=== PATIENT | male | born 1995 | race Caucasian/White ===

== ENCOUNTER 2016-10-27 12:00 | Emergency (ER) | payer OTHER ==
[~2016-10-27] VITALS: Ht 170.2 cm; Wt 66.0 kg
[~2016-10-27 12:00] MED LIST: PERM5CRE TOP; [UNRECOGNIZED DRUG - REMARK]
[2016-10-27 12:04] VITALS: BP 128/74; PULSE 90; RESP 16; TEMP 98.3; O2SAT 100
[2016-10-27] MEDS ORDERED: SODIUM CHLORIDE 0.9% FLUSH 5 ML FLUSH IVF PRN (12:45)
[2016-10-27] MEDS ORDERED: ONDANSETRON HCL 4 MG/2 ML VIAL IVP ONE (12:45)
[2016-10-27] MEDS ORDERED: MORPHINE SULFATE 4 MG/ML INJ IV PUSH ONE (12:45)
--- NOTE | 2016-10-27 12:50 | PD ---
HPI . Abdominal pain Chief Complaint: Abdominal Pain Time Seen by Provider: 12:35 Travel History International Travel<30 days: No Contact w/Intl Traveler<30days: No Traveled to known affect area: No History of Present Illness HPI Patient presents with a 3 to four-day history of lower abdominal pain. He states that he was seen outside facility at the onset of his symptoms and was told that he probably had appendicitis. He states that his surgeon was called in. He states that he had been told by his work that he would not be paid for time off so he left AMA. He reports continued abdominal pain since that time although he does state that it is better now. He any associated fever. He denies any nausea, vomiting or diarrhea. He denies any anorexia. He denies any urinary tract symptoms. He states that his appetite has waxed and waned his entire life and that sometimes he'll gain a lot of weight and then he'll lose his appetite and lose a lot of weight. PFSH Past Medical History Medical History: Denies Significant Hx Diminished Hearing: No Immunizations Current: Yes Influenza Vaccination: No Past Surgical History Surgical History: No Previous Surgery Social History Alcohol Use: Yes (occ) Tobacco Use: Yes (< 1 ppd) Substance Use: Yes (MARIJUANA DAILY ) Allergies-Medications (Allergen,Severity, Reaction): Coded Allergies: Zosyn (Verified Allergy, Intermediate, HIVES, 10/27/16) Reported Meds & Prescriptions Reported Meds & Active Scripts Active Bentyl (Dicyclomine HCl) 20 Mg Tab 20 Mg PO QID PRN Review of Systems Except as stated in HPI: all other systems reviewed are Neg General / Constitutional: No: Fever, Chills Gastrointestinal: Positive: Abdominal Pain, No: Nausea, Vomiting, Diarrhea, Loss of Appetite Genitourinary: No: Urgency, Frequency, Dysuria Physical Exam Narrative GENERAL: Healthy-appearing young man in no acute distress. SKIN: Warm and dry. HEAD: Atraumatic. Normocephalic. EYES: Pupils equal and round. ENT: No nasal bleeding or discharge. Mucous membranes pink and moist. NECK: Trachea midline. CARDIOVASCULAR: Regular rate and rhythm. RESPIRATORY: No accessory muscle use. GASTROINTESTINAL: Abdomen soft, non-tender, nondistended. Normal bowel sounds. MUSCULOSKELETAL: No obvious deformities. No edema. NEUROLOGICAL: Awake and alert. No obvious cranial nerve deficits. Motor grossly within normal limits. Normal speech. PSYCHIATRIC: Appropriate mood and affect; insight and judgment normal. Data Data Last Documented VS Vital Signs Date Time Temp Pulse Resp B/P Pulse Ox O2 Delivery O2 Flow Rate FiO2 10/27/16 12:04 98.3 90 16 128/74 100 Orders Complete Blood Count With Diff (10/27/16 12:35) Comprehensive Metabolic Panel (10/27/16 12:35) Lactic Acid (10/27/16 12:35) Urinalysis - C+S If Indicated (10/27/16 12:35) Ct Abd/Pel W Iv Contrast(Rout) (10/27/16 12:35) Iv Access Insert/Monitor (10/27/16 12:35) Morphine Inj (Morphine Inj) (10/27/16 12:45) Ondansetron Inj (Zofran Inj) (10/27/16 12:45) Sodium Chloride 0.9% Flush (Ns Flush) (10/27/16 12:45) Iohexol 350 Inj (Omnipaque 350 Inj) (10/27/16 14:11) Labs Laboratory Tests Test 10/27/16 10/27/16 10/27/16 12:40 13:00 13:05 White Blood Count 6.8 TH/MM3 Red Blood Count 5.65 MIL/MM3 Hemoglobin 16.1 GM/DL Hematocrit 47.8 % Mean Corpuscular Volume 84.7 FL Mean Corpuscular Hemoglobin 28.5 PG Mean Corpuscular Hemoglobin 33.6 % Concent Red Cell Distribution Width 13.0 % Platelet Count 261 TH/MM3 Mean Platelet Volume 8.4 FL Neutrophils (%) (Auto) 55.3 % Lymphocytes (%) (Auto) 36.2 % Monocytes (%) (Auto) 5.3 % Eosinophils (%) (Auto) 1.5 % Basophils (%) (Auto) 1.7 % Neutrophils # (Auto) 3.8 TH/MM3 Lymphocytes # (Auto) 2.4 TH/MM3 Monocytes # (Auto) 0.4 TH/MM3 Eosinophils # (Auto) 0.1 TH/MM3 Basophils # (Auto) 0.1 TH/MM3 CBC Comment DIFF FINAL Differential Comment Lactic Acid Level 0.7 mmol/L Urine Collection Type CLEAN CATCH Urine Color YELLOW Urine Turbidity CLEAR Urine pH 8.5 Urine Specific [place] 1.016 Urine Protein NEG mg/dL Urine Glucose (UA) NEG mg/dL Urine Ketones NEG mg/dL Urine Occult Blood NEG Urine Nitrite NEG Urine Bilirubin NEG Urine Leukocyte Esterase NEG Urine RBC 0-3 /hpf Urine Squamous Epithelial 0-5 /hpf Cells Urine Sperm MANY Microscopic Urinalysis Comment CULT NOT INDICATED Urine Collection Time 13:00 Sodium Level 140 MEQ/L Potassium Level 4.2 MEQ/L Chloride Level 104 MEQ/L Carbon Dioxide Level 31.7 MEQ/L Anion Gap 4 MEQ/L Blood Urea Nitrogen 12 MG/DL Creatinine 0.92 MG/DL Estimat Glomerular Filtration 105 ML/MIN Rate Random Glucose 84 MG/DL Calcium Level 9.0 MG/DL Total Bilirubin 0.7 MG/DL Aspartate Amino Transf 24 U/L (AST/SGOT) Alanine Aminotransferase 25 U/L (ALT/SGPT) Alkaline Phosphatase 98 U/L Total Protein 7.5 GM/DL Albumin 4.1 GM/DL [facility] Medical Decision Making Medical Screen Exam Complete: Yes Emergency Medical Condition: Yes Differential Diagnosis Differential diagnosis of abdominal pain includes but is not limited to gastritis, pancreatitis, hepatitis, gastroenteritis, gallbladder disease, constipation, urinary retention, UTI, peptic ulcer disease, diverticulitis or appendicitis Narrative Course Patient presents for evaluation of lower abdominal pain. He reports he was told a few days ago that he had appendicitis. Surgery was planned but he signed out AMA. CBC & BMP Diagram 10/27/16 12:40 10/27/16 13:05 UA is negative for infection. CT was negative for active disease. Diagnosis Primary Impression: Abdominal pain Qualified Code: R10.30 - Lower abdominal pain Scripts Dicyclomine (Bentyl)20 Mg Tab20 Mg PO QID PRN (abdominal cramping) #12 TAB Ref 0 Prov:Lexi Winchester MD 10/27/16 Disposition: 01 DISCHARGE HOME Condition: Stable Lexi Winchester MD Oct 27, 2016 12:50
[2016-10-27 13:00] LABS: AUTOMATED NEUTROPHIL # 3.8 TH/MM3 (1.8-7.7); BASOPHIL # 0.1 TH/MM3 (0-0.2); BASOPHIL % 1.7 % (0.0-2.0); EOSINOPHIL # 0.1 TH/MM3 (0-0.4); EOSINOPHIL % 1.5 % (0.0-4.0); HEMATOCRIT 47.8 % (39.0-51.0); HEMO FLAGS DIFF FINAL; LYMPH % 36.2 % (9.0-44.0); LYMPHOCYTE # 2.4 TH/MM3 (1.0-4.8); MEAN CELL VOLUME 84.7 FL (80.0-100.0); MEAN CORPUSCULAR HEMOGLOBIN 28.5 PG (27.0-34.0); MEAN CORPUSCULAR HGB CONC 33.6 % (32.0-36.0); MONO % 5.3 % (0.0-8.0); NEUT % 55.3 % (16.0-70.0); PLATELET COUNT 261 TH/MM3 (150-450); RED BLOOD COUNT 5.65 MIL/MM3 (4.50-5.90); WHITE BLOOD COUNT 6.8 TH/MM3 (4.0-11.0)
[2016-10-27 13:04] LABS: BLOOD, URINE NEG (NEG); GLUCOSE,URINE NEG (NEG); KETONE, URINE NEG (NEG); NITRITE,URINE NEG (NEG); PH, URINE 8.5 (5.0-8.5)
[2016-10-27 13:08] LABS: METHOD OF COLLECTION CLEAN CATCH; URINE COLOR YELLOW (YELLW/STRAW)
[2016-10-27 13:09] LABS: RBC, URINE 0-3 /hpf (0-3); SQUAMOUS EPITHELIAL CELL URINE 0-5 /hpf (0-5)
[2016-10-27 13:10] LABS: COMMENT (UR) CULT NOT INDICATED; CULTURE IF INDICATED CULT NOT INDICATED
[2016-10-27 13:31] LABS: CHLORIDE 104 MEQ/L (98-107); POTASSIUM 4.2 MEQ/L (3.5-5.1); SODIUM (NA) 140 MEQ/L (136-145)
[2016-10-27 13:36] LABS: ANION GAP 4 MEQ/L (5-15); BICARBONATE 31.7 MEQ/L (21.0-32.0)
[2016-10-27 13:37] LABS: BLOOD UREA NITROGEN 12 MG/DL (7-18)
[2016-10-27 13:39] LABS: ALT (GPT) 25 U/L (9-52)
[2016-10-27 13:40] LABS: AST (GOT) 24 U/L (15-39); GLOMERULAR FILTRATION RATE 105 ML/MIN (>89)
[2016-10-27 13:41] LABS: TOTAL BILIRUBIN ADULT 0.7 MG/DL (0.2-1.0)
[2016-10-27 13:42] LABS: ALKALINE PHOSPHATASE 98 U/L (45-117)
[2016-10-27] MEDS ORDERED: BENT20TA PO (13:47)
[2016-10-27] MEDS ORDERED: IOHEXOL 350 MG/ML 10 ML VIAL (for RAD DIAG) IV ONE (14:11)
--- NOTE | 2016-10-27 14:30 | RADHPO ---
EXAM DATE/TIME: 10/27/2016 14:03 [place] COMPARISON: No previous studies available for comparison. INDICATIONS : Right mid to lower abdominal pain. IV CONTRAST: 90 cc Omnipaque 350 (iohexol) IV ORAL CONTRAST: No oral contrast ingested. RADIATION DOSE: 4.74 CTDIvol (mGy) MEDICAL HISTORY : None SURGICAL HISTORY : None. ENCOUNTER: Initial ACUITY: 3 days PAIN SCALE: 3/10 LOCATION: Right lower quadrant TECHNIQUE: Volumetric scanning of the abdomen and pelvis was performed. Using automated exposure control and ad justment of the mA and/or kV according to patient size, radiation dose was kept as low as reasonably achievable to obtain optimal diagnostic quality images. FINDINGS: LOWER LUNGS: The visualized lower lungs are clear. LIVER: Homogeneous density without lesion. There is no dilation of the biliary tree. No calcified gallston es. SPLEEN: Normal size without lesion. PANCREAS: Within normal limits. KIDNEYS: Normal in size and shape. There is no mass, stone or hydronephrosis. ADRENAL GLANDS: Within normal limits. VASCULAR: There is no aortic aneurysm. BOWEL/MESENTERY: The stomach, small bowel, and colon demonstrate no acute abnormality. There is no free intraperitone al air or fluid. ABDOMINAL WALL: Within normal limits. RETROPERITONEUM: There is no lymphadenopathy. BLADDER: No wall thickening or mass. REPRODUCTIVE: Within normal limits. INGUINAL: There is no lymphadenopathy or hernia. MUSCULOSKELETAL: Within normal limits for patient age. CONCLUSION: No acute disease. Nitin Chacon MD on October 27, 2016 at 14:24 Board Certified Radiologist. This report was verified electronically.
== END 2016-10-27 14:58 | disposition home or self-care (01) ==
LOC: PHED 12:00
DX: R10.30 Lower abdominal pain, unspecified (principal); F17.210 Nicotine dependence, cigarettes, uncomplicated; F12.20 Cannabis dependence, uncomplicated
CPT/HCPCS: 74177; 80053; 81001; 83605; 85025; 96374; 96375; 99284; J2270; J2405; Q9967

== ENCOUNTER 2017-08-01 13:22 | Emergency (ER) | payer OTHER ==
[~2017-08-01] VITALS: Ht 175.3 cm; Wt 67.0 kg
[~2017-08-01 13:22] MED LIST changes: +BENT20TA PO; -PERM5CRE TOP; -[UNRECOGNIZED DRUG - REMARK]
[2017-08-01 13:38] VITALS: BP 124/66; PULSE 94; RESP 16; TEMP 98.6; O2SAT 97
[2017-08-01 14:27] LABS: AUTOMATED NEUTROPHIL # 6.6 TH/MM3 (1.8-7.7); BASOPHIL # 0.1 TH/MM3 (0-0.2); EOSINOPHIL # 0.1 TH/MM3 (0-0.4); EOSINOPHIL % 1.2 % (0.0-4.0); HEMATOCRIT 40.9 % (39.0-51.0); HEMO FLAGS DIFF FINAL; LYMPH % 22.7 % (9.0-44.0); LYMPHOCYTE # 2.2 TH/MM3 (1.0-4.8); MEAN CELL VOLUME 86.2 FL (80.0-100.0); MEAN CORPUSCULAR HEMOGLOBIN 29.1 PG (27.0-34.0); MEAN CORPUSCULAR HGB CONC 33.8 % (32.0-36.0); MONO % 8.6 % (0.0-8.0); NEUT % 66.5 % (16.0-70.0); PLATELET COUNT 328 TH/MM3 (150-450); RED BLOOD COUNT 4.75 MIL/MM3 (4.50-5.90); RED CELL DISTRIBUTION WIDTH 14.8 % (11.6-17.2); WHITE BLOOD COUNT 9.9 TH/MM3 (4.0-11.0)
--- NOTE | 2017-08-01 14:41 | PD ---
HPI Chief Complaint: Suicide Ideation/Attempt Time Seen by Provider: 14:38 Travel History International Travel<30 days: No Contact w/Intl Traveler<30days: No Traveled to known affect area: No History of Present Illness HPI Patient is a 22-year-old male presenting to emergency Department under [facility] for psychiatric evaluation. Patient states that he is "losing his mind". He states that he felt suicidal for almost a year. He reports attempting to overdose twice on heroin during this time. He reports consistent use of methamphetamines doesn't know when he took it last because he "blacks out". He states that he was released from long term on May 11. He also reports relationship issues and states that he chooses to be homeless. Other than foot pain from walking for the last several days he has no complaints. Patient denies any homicidal ideations or hallucinations. PFSH Past Medical History Medical History: Denies Significant Hx Psychiatric: Yes Immunizations Current: Yes Tetanus Vaccination: Unknown Past Surgical History Surgical History: No Previous Surgery Social History Alcohol Use: Yes (occ) Tobacco Use: Yes (< 1 ppd) Substance Use: Yes (meth, dilaudid, cocaine, heroin, marijuana, ) Allergies-Medications (Allergen,Severity, Reaction): Coded Allergies: piperacillin (Unverified Allergy, Intermediate, HIVES, 05/03/17) tazobactam (Unverified Allergy, Intermediate, HIVES, 05/03/17) Reported Meds & Prescriptions Reported Meds & Active Scripts Active Review of Systems Except as stated in HPI: all other systems reviewed are Neg Musculoskeletal: Positive: Pain (feet) Psychiatric: Positive: Depression, Suicidal Ideations, Substance Abuse Physical Exam Narrative GENERAL: Well-developed, well-nourished, intoxicated-appearing male. SKIN: Warm and dry. HEAD: Atraumatic. Normocephalic. EYES: Pupils equal and round. No scleral icterus. No injection or drainage. ENT: No nasal bleeding or discharge. Mucous membranes pink and moist. NECK: Trachea midline. No JVD. CARDIOVASCULAR: Regular rate and rhythm. RESPIRATORY: No accessory muscle use. Clear to auscultation. Breath sounds equal bilaterally. GASTROINTESTINAL: Abdomen soft, non-tender, nondistended. Hepatic and splenic margins not palpable. MUSCULOSKELETAL: Extremities without clubbing, cyanosis, or edema. No obvious deformities. NEUROLOGICAL: Awake and alert. No obvious cranial nerve deficits. Motor grossly within normal limits. Five out of 5 muscle strength in the arms and legs. Normal speech. PSYCHIATRIC: Depressed mood and flat affect; insight and judgment normal. Data Data Last Documented VS Vital Signs Date Time Temp Pulse Resp B/P (MAP) Pulse Ox O2 Delivery O2 Flow Rate FiO2 08/01/17 13:38 98.6 94 16 124/66 (85) 97 Orders Orders Complete Blood Count With Diff (08/01/17 14:06) Comprehensive Metabolic Panel (08/01/17 14:06) Urinalysis - C+S If Indicated (08/01/17 14:06) Psych Screen (08/01/17 14:06) Drug Screen, Random Urine (08/01/17 14:06) Labs Laboratory Tests Test 08/01/17 14:16 White Blood Count 9.9 TH/MM3 Red Blood Count 4.75 MIL/MM3 Hemoglobin 13.8 GM/DL Hematocrit 40.9 % Mean Corpuscular Volume 86.2 FL Mean Corpuscular Hemoglobin 29.1 PG Mean Corpuscular Hemoglobin Concent 33.8 % Red Cell Distribution Width 14.8 % Platelet Count 328 TH/MM3 Mean Platelet Volume 7.6 FL Neutrophils (%) (Auto) 66.5 % Lymphocytes (%) (Auto) 22.7 % Monocytes (%) (Auto) 8.6 % Eosinophils (%) (Auto) 1.2 % Basophils (%) (Auto) 1.0 % Neutrophils # (Auto) 6.6 TH/MM3 Lymphocytes # (Auto) 2.2 TH/MM3 Monocytes # (Auto) 0.8 TH/MM3 Eosinophils # (Auto) 0.1 TH/MM3 Basophils # (Auto) 0.1 TH/MM3 CBC Comment DIFF FINAL Differential Comment Blood Urea Nitrogen 21 MG/DL Creatinine 1.00 MG/DL Random Glucose 92 MG/DL Total Protein 7.3 GM/DL Albumin 3.7 GM/DL Calcium Level 8.8 MG/DL Alkaline Phosphatase 117 U/L Aspartate Amino Transf (AST/SGOT) 70 U/L Alanine Aminotransferase (ALT/SGPT) 85 U/L Total Bilirubin 1.2 MG/DL Sodium Level 135 MEQ/L Potassium Level 3.8 MEQ/L Chloride Level 100 MEQ/L Carbon Dioxide Level 27.0 MEQ/L Anion Gap 8 MEQ/L Estimat Glomerular Filtration Rate 94 ML/MIN MDM Medical Decision Making Medical Screen Exam Complete: Yes Emergency Medical Condition: Yes Medical Record Reviewed: Yes Interpretation(s) Laboratory Tests Test 08/01/17 14:16 White Blood Count 9.9 TH/MM3 Red Blood Count 4.75 MIL/MM3 Hemoglobin 13.8 GM/DL Hematocrit 40.9 % Mean Corpuscular Volume 86.2 FL Mean Corpuscular Hemoglobin 29.1 PG Mean Corpuscular Hemoglobin Concent 33.8 % Red Cell Distribution Width 14.8 % Platelet Count 328 TH/MM3 Mean Platelet Volume 7.6 FL Neutrophils (%) (Auto) 66.5 % Lymphocytes (%) (Auto) 22.7 % Monocytes (%) (Auto) 8.6 % Eosinophils (%) (Auto) 1.2 % Basophils (%) (Auto) 1.0 % Neutrophils # (Auto) 6.6 TH/MM3 Lymphocytes # (Auto) 2.2 TH/MM3 Monocytes # (Auto) 0.8 TH/MM3 Eosinophils # (Auto) 0.1 TH/MM3 Basophils # (Auto) 0.1 TH/MM3 CBC Comment DIFF FINAL Differential Comment Blood Urea Nitrogen 21 MG/DL Creatinine 1.00 MG/DL Random Glucose 92 MG/DL Total Protein 7.3 GM/DL Albumin 3.7 GM/DL Calcium Level 8.8 MG/DL Alkaline Phosphatase 117 U/L Aspartate Amino Transf (AST/SGOT) 70 U/L Alanine Aminotransferase (ALT/SGPT) 85 U/L Total Bilirubin 1.2 MG/DL Sodium Level 135 MEQ/L Potassium Level 3.8 MEQ/L Chloride Level 100 MEQ/L Carbon Dioxide Level 27.0 MEQ/L Anion Gap 8 MEQ/L Estimat Glomerular Filtration Rate 94 ML/MIN Vital Signs Date Time Temp Pulse Resp B/P (MAP) Pulse Ox O2 Delivery O2 Flow Rate FiO2 08/01/17 13:38 98.6 94 16 124/66 (78) 97 Differential Diagnosis Mood disorder versus substance abuse versus metabolic abnormality versus suicidal ideations versus other Narrative Course Patient is a 22-year-old male that presented to the emergency Department under Lopez act for psychiatric evaluation secondary to suicidal ideations. He reports consistent methamphetamine use. Patient's vital signs are stable. Mental health screening discussed with the patient. Mental health screening discussed with the patient. Psychiatric screen ordered. Labs reviewed, mild transaminitis noted. Urine drug screen is pending however this will not prohibit patient's medical clearance as patient already admitted to using methamphetamines. Patient is medically clear for psychiatric evaluation at this time. Diagnosis Primary Impression: Medical clearance for psychiatric admission Condition: Stable Carmela Jimenez Aug 01, 2017 14:41
[2017-08-01 14:59] LABS: ALKALINE PHOSPHATASE 117 U/L (45-117); ALT (GPT) 85 U/L (12-78); ANION GAP 8 MEQ/L (5-15); AST (GOT) 70 U/L (15-37); BLOOD UREA NITROGEN 21 MG/DL (7-18); CHLORIDE 100 MEQ/L (98-107); GLOMERULAR FILTRATION RATE 94 ML/MIN (>89); POTASSIUM 3.8 MEQ/L (3.5-5.1); SODIUM (NA) 135 MEQ/L (136-145); TOTAL BILIRUBIN ADULT 1.2 MG/DL (0.2-1.0)
[2017-08-01 17:52] VITALS: BP 98/54; PULSE 75; RESP 20; O2SAT 99
[2017-08-01 19:05] VITALS: BP 96/56; PULSE 79; RESP 16; O2SAT 98
[2017-08-01 21:50] LABS: BLOOD, URINE NEG (NEG); COMMENT (UR) CULT NOT INDICATED; CULTURE IF INDICATED CULT NOT INDICATED; GLUCOSE,URINE NEG (NEG); KETONE, URINE 10 mg/dL (NEG); MUCUS URINE FEW /lpf (OCC); NITRITE,URINE NEG (NEG); SQUAMOUS EPITHELIAL CELL URINE <1 /hpf (0-5); URINE COLOR YELLOW (YELLW/STRAW)
[2017-08-02 06:20] VITALS: BP 89/59; PULSE 85; RESP 18
[2017-08-02 10:00] VITALS: BP 125/57; PULSE 92; RESP 18
--- NOTE | 2017-08-02 13:12 | PD ---
History of Present Illness Chief Complaint: Suicide Ideation/Attempt Time Seen by Provider: 12:45 Travel History International Travel<30 Days: No Contact w/Intl Traveler<30days: No Known affected area: No Legal Status Legal Status: Lopez Act Lopez Act Signed By: Les Menjivar Lopez Act Comment: 08/01/2017 1311 OFC. Ruperto JEONG #[id number] #[id number] History of Present Illness: History of Present Illness HPI Patient is a 22-year-old male with history of substance abuse and no previous psychiatric history who presents to emergency Department under a Lopez act initiated by law enforcement. The report alleges that they responded toa call in relation to a suicdal person. The patient reported to the police that he wanted to kill himself if he did not receive treatment and due to personal problems.he reported to psychiatric screener that he has a pending court case and may be facing life in [facility]. The patient did not make any attempt at harming himself. he has not presented any behavioral concerns or suicidality while in [facility]. His main concern this afternoon is that he has not received his lunch yet. EMR reviewed. No previous contact with [facility] psychiatry. Current toxicology is positive for amphetamines as well as cannabinoids. The patient is alert and oriented. Speech is clear and logical. He does not present any evidence of any psychosis, no eliseo. He tells me " I wanted to Lopez act myself because I need drug and psych help". He reports that since his release from care home he has been using substances. He does not present any suicidal or homicidal ideation, intent or plan. He accepts information on [facility] for substance use.He is overheard arguing loudly with his fiancee since she is refusing to pick him up at the hospital unless he gives her $700.00 for rent. PFSH Past Medical History Medical History: Denies Significant Hx Psychiatric: Yes Immunizations Current: Yes Tetanus Vaccination: Unknown Past Surgical History Surgical History: No Previous Surgery Psychiatric History Psychiatric History Hx Psychiatric Treatment: Reports received treatmetn while in care home. History of Inpatient Treatment: No Guns or firearms in home: No Social History Single male, originally from [place]. Completed high school. Lives with deborah. has 2 children ages 3 years and 2 years. He is unemployed. Has pending court date. Hx Alcohol Use: Yes (occ) Hx Tobacco Use: Yes (< 1 ppd) Hx Substance Use: Yes (meth, dilaudid, cocaine, heroin, marijuana, ) Substance Use Type: Marijuana, Amphetamines-Stimulants, Nicotine/Cigarettes, Prescription Medications, Heroin, Cocaine Hx of Substance Use Treatment: Yes (reports at least six different admissions for substance abuse treatent as a teenager. ) Family Psychiatric History None reported. Allergies-Medications (Allergen,Severity, Reaction): Coded Allergies: piperacillin (Unverified Allergy, Intermediate, HIVES, 08/01/17) tazobactam (Unverified Allergy, Intermediate, HIVES, 08/01/17) Reported Meds & Prescriptions Reported Meds & Active Scripts Active Review of Systems Except as stated in HPI: all other systems reviewed are Neg Mental Status Examination Appearance: Appropriate (heavily tatooed male. ) Consciousness: Alert Orientation: x4 Motor Activity: Normal gait Speech: Unremarkable Language: Adequate Fund of Knowledge: Adequate Attention and Concentration: Adequate Memory: Unremarkable Mood: Appropriate Affect: Appropriate Thought Process & Associations: Intact Thought Content: Appropriate Hallucination Type: None Delusion Type: None Suicidal Ideation: No Suicidal Plan: No Suicidal Intention: No Homicidal Ideation: No Homicidal Plan: No Homicidal Intention: No Insight: Poor Judgment: Impulsive MDM Medical Decision Making Medical Record Reviewed: Yes Assessment/Plan 22 year old male with history of substance abuse who presents to Ed under a Lopez act alleging that he is feeling like he wants to kill himself if he does not receive treatment. Patient did not make any attempt at harming himself. has no previous suicidal attempts. Did not present any suicidality while monitored here in [facility] over extended period of time. He presented no objective clinical signs of an unstable major mental illness as defined under the Lopez act. He is futire oriented in asking for treatment. It appears that he experienced symptoms while under the influence of substances. He does not meet Lopez act criteria . Lift BA. Refer to [facility] for outpatient treatment. Orders Orders Complete Blood Count With Diff (08/01/17 14:06) Comprehensive Metabolic Panel (08/01/17 14:06) Urinalysis - C+S If Indicated (08/01/17 14:06) Psych Screen (08/01/17 14:06) Drug Screen, Random Urine (08/01/17 14:06) Diet Regular Basic (08/02/17 Breakfast) Diet Regular Basic (08/02/17 Lunch) Results Vital Signs Date Time Temp Pulse Resp B/P (MAP) Pulse Ox O2 Delivery O2 Flow Rate FiO2 08/02/17 10:00 92 18 125/57 (79) Room Air 08/02/17 06:20 85 18 89/59 (69) 08/01/17 19:05 79 16 96/56 (69) 98 Room Air 08/01/17 17:52 75 20 98/54 (69) 99 Room Air 08/01/17 13:38 98.6 94 16 124/66 (85) 97 Laboratory Tests Test 08/01/17 14:16 08/01/17 20:10 White Blood Count 9.9 Red Blood Count 4.75 Hemoglobin 13.8 Hematocrit 40.9 Mean Corpuscular Volume 86.2 Mean Corpuscular Hemoglobin 29.1 Mean Corpuscular Hemoglobin Concent 33.8 Red Cell Distribution Width 14.8 Platelet Count 328 Mean Platelet Volume 7.6 Neutrophils (%) (Auto) 66.5 Lymphocytes (%) (Auto) 22.7 Monocytes (%) (Auto) 8.6 Eosinophils (%) (Auto) 1.2 Basophils (%) (Auto) 1.0 Neutrophils # (Auto) 6.6 Lymphocytes # (Auto) 2.2 Monocytes # (Auto) 0.8 Eosinophils # (Auto) 0.1 Basophils # (Auto) 0.1 CBC Comment DIFF FINAL Differential Comment Blood Urea Nitrogen 21 Creatinine 1.00 Random Glucose 92 Total Protein 7.3 Albumin 3.7 Calcium Level 8.8 Alkaline Phosphatase 117 Aspartate Amino Transf (AST/SGOT) 70 Alanine Aminotransferase (ALT/SGPT) 85 Total Bilirubin 1.2 Sodium Level 135 Potassium Level 3.8 Chloride Level 100 Carbon Dioxide Level 27.0 Anion Gap 8 Estimat Glomerular Filtration Rate 94 Urine Color YELLOW Urine Turbidity CLEAR Urine pH 6.0 Urine Specific [place] 1.030 Urine Protein TRACE Urine Glucose (UA) NEG Urine Ketones 10 Urine Occult Blood NEG Urine Nitrite NEG Urine Bilirubin NEG Urine Urobilinogen 2.0 Urine Leukocyte Esterase NEG Urine RBC LESS THAN 1 Urine WBC 2 Urine Squamous Epithelial Cells <1 Urine Mucus FEW Microscopic Urinalysis Comment CULT NOT INDICATED Urine Opiates Screen NEG Urine Barbiturates Screen NEG Urine Amphetamines Screen POS Urine Benzodiazepines Screen NEG Urine Cocaine Screen NEG Urine Cannabinoids Screen POS Diagnosis Primary Impression: 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
--- NOTE | 2017-08-02 13:13 | PD ---
Physical Exam Time Seen by Provider: 13:10 EMBER Davison has evaluated the patient, lifted the Lopez act and cleared the patient for discharge. Data Data Last Documented VS Vital Signs Date Time Temp Pulse Resp B/P (MAP) Pulse Ox O2 Delivery O2 Flow Rate FiO2 08/02/17 10:00 92 18 125/57 (79) Room Air 08/01/17 19:05 98 08/01/17 13:38 98.6 Orders Orders Complete Blood Count With Diff (08/01/17 14:06) Comprehensive Metabolic Panel (08/01/17 14:06) Urinalysis - C+S If Indicated (08/01/17 14:06) Psych Screen (08/01/17 14:06) Drug Screen, Random Urine (08/01/17 14:06) Diet Regular Basic (08/02/17 Breakfast) Diet Regular Basic (08/02/17 Lunch) Labs Laboratory Tests Test 08/01/17 14:16 08/01/17 20:10 White Blood Count 9.9 TH/MM3 Red Blood Count 4.75 MIL/MM3 Hemoglobin 13.8 GM/DL Hematocrit 40.9 % Mean Corpuscular Volume 86.2 FL Mean Corpuscular Hemoglobin 29.1 PG Mean Corpuscular Hemoglobin Concent 33.8 % Red Cell Distribution Width 14.8 % Platelet Count 328 TH/MM3 Mean Platelet Volume 7.6 FL Neutrophils (%) (Auto) 66.5 % Lymphocytes (%) (Auto) 22.7 % Monocytes (%) (Auto) 8.6 % Eosinophils (%) (Auto) 1.2 % Basophils (%) (Auto) 1.0 % Neutrophils # (Auto) 6.6 TH/MM3 Lymphocytes # (Auto) 2.2 TH/MM3 Monocytes # (Auto) 0.8 TH/MM3 Eosinophils # (Auto) 0.1 TH/MM3 Basophils # (Auto) 0.1 TH/MM3 CBC Comment DIFF FINAL Differential Comment Blood Urea Nitrogen 21 MG/DL Creatinine 1.00 MG/DL Random Glucose 92 MG/DL Total Protein 7.3 GM/DL Albumin 3.7 GM/DL Calcium Level 8.8 MG/DL Alkaline Phosphatase 117 U/L Aspartate Amino Transf (AST/SGOT) 70 U/L Alanine Aminotransferase (ALT/SGPT) 85 U/L Total Bilirubin 1.2 MG/DL Sodium Level 135 MEQ/L Potassium Level 3.8 MEQ/L Chloride Level 100 MEQ/L Carbon Dioxide Level 27.0 MEQ/L Anion Gap 8 MEQ/L Estimat Glomerular Filtration Rate 94 ML/MIN Urine Color YELLOW Urine Turbidity CLEAR Urine pH 6.0 Urine Specific [place] 1.030 Urine Protein TRACE mg/dL Urine Glucose (UA) NEG mg/dL Urine Ketones 10 mg/dL Urine Occult Blood NEG Urine Nitrite NEG Urine Bilirubin NEG Urine Urobilinogen 2.0 MG/DL Urine Leukocyte Esterase NEG Urine RBC LESS THAN 1 /hpf Urine WBC 2 /hpf Urine Squamous Epithelial Cells <1 /hpf Urine Mucus FEW /lpf Microscopic Urinalysis Comment CULT NOT INDICATED Urine Opiates Screen NEG Urine Barbiturates Screen NEG Urine Amphetamines Screen POS Urine Benzodiazepines Screen NEG Urine Cocaine Screen NEG Urine Cannabinoids Screen POS MDM Supervised Visit with ALIN: No Narrative Course EMBER Sheehan has evaluated the patient, lifted the Lopez act and cleared the patient for discharge. Patient contracts safety. Denies suicidal or homicidal ideations. Patient will be provided community resource packet to [facility] for follow-up. Has friends and family for support. Patient was medically cleared by alternate provider prior to psych screening. Patient has been evaluated by psychiatry and and is now cleared for discharge. Diagnosis Primary Impression: Substance induced mood disorder Referrals: [facility] (Out patient) [facility] Primary Care Physician Psychiatrist Mitra MAGUI[facility] Patient Instructions: General Instructions, Methamphetamine Abuse (ED), Mood Disorders (ED), Polysubstance Abuse (ED) Additional Instruction: Contract safety to your self and others Stop using drugs Follow-up with psychiatry Follow-up with primary care provider Follow-up with Bob Newton Return to the emergency department immediately with worsening of symptoms Med/Other Pt SpecificInfo: No Change to Meds, No Meds Exist/No RX given Disposition: 01 DISCHARGE HOME Condition: Stable Teetee Barnes Aug 02, 2017 13:13
== END 2017-08-02 14:30 | disposition home or self-care (01) ==
LOC: NEPD 13:22 → NEPJ 08-02 14:30
DX: Z02.89 Encounter for other administrative examinations (principal); F19.14 Other psychoactive substance abuse with psychoactive substance-induced mood disorder; R74.0 Nonspecific elevation of levels of transaminase and lactic acid dehydrogenase [LDH]; M79.673 Pain in unspecified foot; Z72.0 Tobacco use; Z86.59 Personal history of other mental and behavioral disorders
CPT/HCPCS: 80053; 80307; 81001; 85025; 99283

== ENCOUNTER 2018-03-06 16:20 | Inpatient (IN) | payer OTHER ==
[2018-03-06] VITALS (11 sets, daily range): BP systolic 103–189; BP diastolic 57–76; PULSE 94–112; RESP 16–30; TEMP 97.6–98; O2SAT 98–100
[~2018-03-06] VITALS: Ht 175.3 cm; Wt 76.0 kg
[2018-03-06] MEDS ORDERED: SODIUM CHLORIDE 0.9% FLUSH 10 ML FLUSH IVF PRN (17:00)
[2018-03-06] MEDS ORDERED: SODIUM CHLOR 0.9% 1000 ML INJ 1,000 ML IV ONE ×3 (17:00→18:45)
[2018-03-06] MEDS ORDERED: LORazepam 2 MG/ML VIAL IV PUSH ONE (17:00)
--- NOTE | 2018-03-06 17:11 | PD ---
HPI Chief Complaint: Alcohol/Drug Intoxication Time Seen by Provider: 16:41 Travel History International Travel<30 days: No Contact w/Intl Traveler<30days: No Traveled to known affect area: No History of Present Illness HPI Patient is a 22-year-old male presents the emergency room with his family member for evaluation of drug abuse and alcohol intoxication. Patient's family member reports that the family went camping this weekend, reports that patient brought along drugs to their camping trip and disappeared for about 24 hours. Rescue was sent to find patient, patient was found floating in the river. Patient was unsure where he was and was confused, he endorses that he does not remember what happened in the past 24 hours, he does admit to using a large amount of drugs this weekend for recreational purposes. Patient reports that he uses mollies, IV Dilaudid, methamphetamines, "any drugs I can get." Family is concerned for possible dehydration, the request patient be placed into a rehab facility. Patient at this time denies suicidal or homicidal lesion, patient reports that he has been using drugs for many years, he does not have any plans for quitting. Patient with no complaints at this time. Patient does admit that his tetanus is up-to-date [facility] Past Medical History Medical History: Denies Significant Hx Diminished Hearing: No Psychiatric: Yes Immunizations Current: Yes Tetanus Vaccination: Unknown Past Surgical History Surgical History: No Previous Surgery Social History Alcohol Use: Yes (occ) Tobacco Use: Yes (< 1 ppd) Substance Use: Yes (meth, dilaudid, cocaine, heroin, marijuana, ) Allergies-Medications (Allergen,Severity, Reaction): Coded Allergies: piperacillin (Unverified Allergy, Intermediate, HIVES, 03/06/18) tazobactam (Unverified Allergy, Intermediate, HIVES, 03/06/18) Reported Meds & Prescriptions Reported Meds & Active Scripts Active No Active Prescriptions or Reported Medications Review of Systems General / Constitutional: No: Fever Eyes: No: Visual changes HENT: No: Headaches Cardiovascular: No: Chest Pain or Discomfort Respiratory: No: Shortness of Breath Gastrointestinal: No: Abdominal Pain Genitourinary: No: Dysuria Musculoskeletal: No: Pain Skin: No Rash Neurologic: No: Weakness Psychiatric: No: Depression Endocrine: No: Polydipsia Hematologic/Lymphatic: No: Easy Bruising Physical Exam Narrative GENERAL: No acute distress SKIN: Focused skin assessment warm/dry. Patient with sunburn throughout his skin, patient does have multiple abrasions which are superficial in nature HEAD: Atraumatic. Normocephalic. EYES: Pupils equal and round. No scleral icterus. No injection or drainage. ENT: No nasal bleeding or discharge. Mucous membranes pink and moist. NECK: Trachea midline. No JVD. CARDIOVASCULAR: Regular rate and rhythm. No murmur appreciated. RESPIRATORY: No accessory muscle use. Clear to auscultation. Breath sounds equal bilaterally. GASTROINTESTINAL: Abdomen soft, non-tender, nondistended. Hepatic and splenic margins not palpable. MUSCULOSKELETAL: No obvious deformities. No clubbing. No cyanosis. No edema. NEUROLOGICAL: Awake and alert. No obvious cranial nerve deficits. Motor grossly within normal limits. Normal speech. PSYCHIATRIC: Appropriate mood and affect; insight and judgment normal. Denies SI or HI Data Data Last Documented VS Vital Signs Date Time Temp Pulse Resp B/P (MAP) Pulse Ox O2 Delivery O2 Flow Rate FiO2 03/06/18 17:58 100 16 128/75 (92) 98 Room Air 03/06/18 16:28 97.6 Orders Orders Complete Blood Count With Diff (03/06/18 16:56) Comprehensive Metabolic Panel (03/06/18 16:56) Oximetry (03/06/18 16:56) Iv Access Insert/Monitor (03/06/18 16:56) Ecg Monitoring (03/06/18 16:56) Psych Screen (03/06/18 16:56) Sodium Chloride 0.9% Flush (Ns Flush) (03/06/18 17:00) Drug Screen, Random Urine (03/06/18 16:56) Creatine Kinase (Cpk) (03/06/18 16:56) Sodium Chlor 0.9% 1000 Ml Inj (Ns 1000 M (03/06/18 17:00) Sodium Chlor 0.9% 1000 Ml Inj (Ns 1000 M (03/06/18 17:00) Lorazepam Inj (Ativan Inj) (03/06/18 17:00) Chest, Single Ap (03/06/18 17:17) CKMB (03/06/18 17:00) CKMB% (03/06/18 17:00) Electrocardiogram (03/06/18 ) Lactic Acid Sepsis Protocol (03/06/18 18:37) Urinalysis - C+S If Indicated (03/06/18 18:37) Blood Culture (03/06/18 18:37) Sodium Chlor 0.9% 1000 Ml Inj (Ns 1000 M (03/06/18 18:45) Potassium, Serum (K) (03/06/18 21:37) Calcium Gluconate Inj (Calcium Gluconate (03/06/18 18:45) Insulin Human Regular Inj (Novolin R Inj (03/06/18 18:45) Dextrose 50% In [place] (Vial) Inj (D50w (Vi (03/06/18 18:45) Sodium Polysty Sulfate Liq (Kayexalate L (03/06/18 18:45) Aztreonam Inj (Azactam Inj) (03/06/18 18:45) Vancomycin Inj (Vancomycin Inj) (03/06/18 18:45) Ct Brain W/O Iv Contrast(Rout) (03/06/18 18:48) Urinary Catheter Insert/Apply (03/06/18 19:00) Labs Laboratory Tests Test 03/06/18 17:00 03/06/18 18:50 White Blood Count 27.7 TH/MM3 Red Blood Count 6.17 MIL/MM3 Hemoglobin 17.6 GM/DL Hematocrit 52.9 % Mean Corpuscular Volume 85.8 FL Mean Corpuscular Hemoglobin 28.6 PG Mean Corpuscular Hemoglobin Concent 33.3 % Red Cell Distribution Width 12.6 % Platelet Count 326 TH/MM3 Mean Platelet Volume 8.8 FL Neutrophils (%) (Auto) 84.2 % Lymphocytes (%) (Auto) 7.4 % Monocytes (%) (Auto) 7.0 % Eosinophils (%) (Auto) 0.1 % Basophils (%) (Auto) 1.3 % Neutrophils # (Auto) 23.3 TH/MM3 Lymphocytes # (Auto) 2.1 TH/MM3 Monocytes # (Auto) 1.9 TH/MM3 Eosinophils # (Auto) 0.0 TH/MM3 Basophils # (Auto) 0.4 TH/MM3 CBC Comment AUTO DIFF Differential Comment AUTO DIFF CONFIRMED Blood Urea Nitrogen 84 MG/DL Creatinine 8.40 MG/DL Random Glucose 111 MG/DL Total Protein 9.6 GM/DL Albumin 5.0 GM/DL Calcium Level 9.1 MG/DL Alkaline Phosphatase 119 U/L Aspartate Amino Transf (AST/SGOT) 82 U/L Alanine Aminotransferase (ALT/SGPT) 32 U/L Total Bilirubin 1.4 MG/DL Sodium Level 127 MEQ/L Potassium Level 5.9 MEQ/L Chloride Level 87 MEQ/L Carbon Dioxide Level 17.6 MEQ/L Anion Gap 22 MEQ/L Estimat Glomerular Filtration Rate 8 ML/MIN Total Creatine Kinase 5261 U/L Creatine Kinase MB 26.5 NG/ML Creatine Kinase MB % 0.5 % Urine Color QUENTIN Urine Turbidity CLOUDY Urine pH 5.0 Urine Specific [place] GREATER/EQUAL 1.030 Urine Protein 100 mg/dL Urine Glucose (UA) NEG mg/dL Urine Ketones 15 mg/dL Urine Occult Blood LARGE Urine Nitrite NEG Urine Bilirubin NEG Urine Urobilinogen 0.2 MG/DL Urine Leukocyte Esterase NEG Urine RBC 10-14 /hpf Urine WBC 3-5 /hpf Urine Squamous Epithelial Cells > 8 /hpf Urine Amorphous Sediment LARGE Urine Bacteria NONE /hpf Microscopic Urinalysis Comment CULT NOT INDICATED Urine Barbiturates Screen NEG Urine Amphetamines Screen POS Urine Cocaine Screen NEG Urine Cannabinoids Screen POS MDM Medical Decision Making Medical Screen Exam Complete: Yes Emergency Medical Condition: Yes Medical Record Reviewed: Yes Interpretation(s) EKG at 1906: Sinus tach at 103bpm, qt/qtc: 350/409, hyperacute t wave changes Vital Signs Date Time Temp Pulse Resp B/P (MAP) Pulse Ox O2 Delivery O2 Flow Rate FiO2 03/06/18 16:58 16 99 Room Air 03/06/18 16:51 16 99 Room Air 03/06/18 16:28 97.6 112 16 117/69 (85) 99 Differential Diagnosis Rhabdomyolysis, drug abuse, alcohol abuse, impending DTs, electrolyte abnormalities Narrative Course During the course of the patients emergency department visit, the patients history, examination, and differential diagnosis were reviewed with the patient. The patient was placed on a monitoring and evaluation advisor with oximetry and frequent blood pressure monitoring. The patient had an IV access obtained and blood work sent for analysis. The patient was initially provided IV fluids as well as IV Ativan. The patients laboratory studies were reviewed and remarkable for CBC & BMP Diagram 03/06/18 17:00 Total Protein 9.6 H, Albumin 5.0, Calcium Level 9.1, Alkaline Phosphatase 119 H , Aspartate Amino Transf (AST/SGOT) 82 H, Alanine Aminotransferase (ALT/SGPT) 32 , Total Bilirubin 1.4 H Radiology studies were reviewed and remarkable for Last Impressions Chest X-Ray 03/06/181716 Signed Impressions: CONCLUSION: No acute findings. WBC 27.7, hemoglobin 17.6, hematocrit 32.9, platelets 326, Sodium 127, potassium 5.9, BUN 84, creatinine 8.40, glucose 111 Total CK 5261 Patient with leukocytosis, tachycardia, patient with SIRS criteria, he has been pancultured and was given a dose of Azactam as well as vancomycin. A Lactic acid level was ordered as his initial vital signs was only tachycardia. His elevated white blood cell count as well as renal failure is most likely due to dehydration as he was not drinking any fluids in the past 24 hours and was drinking fireball the day before. He has also been in the [place] this weekend. Patient with obvious rhabdomyolysis with a total CK 5261, he has been given 3 liters of IV fluid. Patient's potassium is 5.9, patient will be given glucose, insulin, Kayexalate as well as calcium gluconate. He does appear to have hyperacute t waves on ekg. Given his renal failure, discussed with patient need for guaman catheter to measure I's and O's. - patient agreeable to guaman catheter Patient will require admission in the ICU for impending DTs as well as for electrolyte abnormalities and rhabdomyolysis. Concerning findings were reviewed with patient as well as his family members Case reviewed with Dr Henriquez who accepts pt to service Critical Care Narrative Aggregate critical care time was 40 minutes. Time to perform other separately billable procedures was not included in the critical care time. My time did not include minutes spent treating any other patients simultaneously or on activities that did not directly contribute to the patient's treatment. The services I provided to this patient were to treat and/or prevent clinically significant deterioration that could result in: , decompensation, deterioration I provided critical care services requiring my management, as noted below: Chart data review, documentation time, medication orders and management, vital sign assessments/reviewing monitor data, ordering and reviewing lab tests, ordering and interpreting/reviewing x-rays and diagnostic studies, care of the patient and discussion of the patient with the admitting physicians. Sepsis Criteria SIRS Criteria (2 or more): Heart rate over 90, WBC > 55580, < 4000 or > 10% bands Severe Sepsis (+one): Organ Dysfunction, Lactate >2, Acute Oliguria/Renal Failure Diagnosis Primary Impression: Renal failure Additional Impressions: Rhabdomyolysis Hyperkalemia impending delirium tremors Hyponatremia SIRS (systemic inflammatory response syndrome) Admitting Information Admitting Physician Requests: Admit Scripts No Active Prescriptions or Reported Meds Bhavya John DO Mar 06, 2018 17:11
[2018-03-06 17:14] LABS: AUTOMATED NEUTROPHIL # 23.3 TH/MM3 (1.8-7.7); BASOPHIL # 0.4 TH/MM3 (0-0.2); BASOPHIL % 1.3 % (0.0-2.0); EOSINOPHIL % 0.1 % (0.0-4.0); HEMATOCRIT 52.9 % (39.0-51.0); HEMOGLOBIN 17.6 GM/DL (13.0-17.0); LYMPH % 7.4 % (9.0-44.0); LYMPHOCYTE # 2.1 TH/MM3 (1.0-4.8); MEAN CELL VOLUME 85.8 FL (80.0-100.0); MEAN CORPUSCULAR HEMOGLOBIN 28.6 PG (27.0-34.0); MEAN CORPUSCULAR HGB CONC 33.3 % (32.0-36.0); MEAN PLATELET VOLUME 8.8 FL (7.0-11.0); MONOCYTE # 1.9 TH/MM3 (0-0.9); NEUT % 84.2 % (16.0-70.0); PLATELET COUNT 326 TH/MM3 (150-450); RED BLOOD COUNT 6.17 MIL/MM3 (4.50-5.90); RED CELL DISTRIBUTION WIDTH 12.6 % (11.6-17.2); WHITE BLOOD COUNT 27.7 TH/MM3 (4.0-11.0)
[2018-03-06 17:46] LABS: CHLORIDE 87 MEQ/L (98-107); SODIUM (NA) 127 MEQ/L (136-145)
[2018-03-06 17:49] LABS: CALCIUM 9.1 MG/DL (8.5-10.1)
[2018-03-06 17:50] LABS: BICARBONATE 17.6 MEQ/L (21.0-32.0); BLOOD UREA NITROGEN 84 MG/DL (7-18); GLUCOSE,RANDOM 111 MG/DL (74-106)
[2018-03-06 17:53] LABS: ALT (GPT) 32 U/L (12-78); AST (GOT) 82 U/L (15-37); GLOMERULAR FILTRATION RATE 8 ML/MIN (>89)
[2018-03-06 17:54] LABS: TOTAL BILIRUBIN ADULT 1.4 MG/DL (0.2-1.0); TOTAL PROTEIN 9.6 GM/DL (6.4-8.2)
[2018-03-06 17:56] LABS: ALKALINE PHOSPHATASE 119 U/L (45-117)
--- NOTE | 2018-03-06 18:05 | RADRPT ---
EXAM DATE: 03/06/2018 5:59 PM EDT AGE/SEX: 22 years / Male INDICATIONS: Palpitations. CLINICAL DATA: This is the patient's initial encounter. Patient reports that signs and symptoms have been present for 1 day and indicates a pain score of Nonresponsive. MEDICAL/SURGICAL HISTORY: Non-responsive. Non-responsive. COMPARISON: No prior exams available for comparison. FINDINGS: A single AP view of the chest demonstrates the lungs to be symmetrically aerated without evidence of mass, infiltrate or effusion. The cardiomediastinal contours are unremarkable. Osseous structures a re intact. CONCLUSION: No acute findings. Electronically signed by: Pablito Neff MD 03/06/2018 6:04 PM EDT
[2018-03-06] MEDS ORDERED: INSULIN HUMAN REGULAR 1,000 UNITS/10 ML VIAL IV PUSH ONE (18:45)
[2018-03-06] MEDS ORDERED: SODIUM POLYSTYRENE SULFONATE SUSP 15 GM/60 ML CUP PO ONE (18:45)
[2018-03-06] MEDS ORDERED: AZTREONAM INJ 1,000 MG in SODIUM CHLORIDE 0.9% INJ 100 ML IV ONE (18:45)
[2018-03-06] MEDS ORDERED: VANCOMYCIN INJ 1,100 MG in SODIUM CHLOR 0.9% 250 ML INJ 250 ML IV ONE (18:45)
[2018-03-06] MEDS ORDERED: DEXTROSE 50% IN WATER 50 ML VIAL(D50) IV PUSH ONE (18:45)
[2018-03-06] MEDS ORDERED: CALCIUM GLUCONATE 10% 1 GM/10 ML VIAL SLOW IVP ONE (18:45)
[2018-03-06 19:05] LABS: BLOOD, URINE LARGE (NEG); GLUCOSE,URINE NEG (NEG); KETONE, URINE 15 mg/dL (NEG); NITRITE,URINE NEG (NEG); URINE LEUKOCYTE ESTERASE NEG (NEG)
[2018-03-06 19:12] LABS: BILIRUBIN, URINE NEG (NEG); URINE COLOR AMBER (YELLW/STRAW)
[2018-03-06 19:14] LABS: AMORPHOUS SEDIMENT, URINE LARGE; SQUAMOUS EPITHELIAL CELL URINE > 8 /hpf (0-5)
[2018-03-06] MEDS ORDERED: NURSING INFORMATION XX SCH (19:30)
[2018-03-06] MEDS ORDERED: LACTULOSE SYRUP 20 GM/30 ML CUP PO PRN (19:30)
[2018-03-06] MEDS ORDERED: SODIUM CHLORIDE 0.9% FLUSH 10 ML FLUSH IV FLUSH PRN (19:30)
[2018-03-06] MEDS ORDERED: BISACODYL 10 MG SUPP RECTAL PRN (19:30)
[2018-03-06] MEDS ORDERED: SENNOSIDES 8.6 MG TAB PO PRN (19:30)
[2018-03-06] MEDS ORDERED: MAGNESIUM HYDROXIDE SUSP 30 ML CUP PO PRN (19:30)
[2018-03-06] MEDS ORDERED: RESP: ALBUTEROL 2.5 MG/IPRATROPIUM 0.5 MG NEB (PRN) INH (19:30)
[2018-03-06] MEDS ORDERED: CHLORHEXIDINE GLUCONATE 2 % 1 PACK (2 CLOTHS) TOP PRN (19:30)
--- NOTE | 2018-03-06 20:07 | RADRPT ---
EXAM DATE: 03/06/2018 7:58 PM EDT AGE/SEX: 22 years / Male INDICATIONS: Altered mental status; possible overdose. CLINICAL DATA: This is the patient's initial encounter. Patient reports that signs and symptoms have been present for 1 day and indicates a pain score of 0/10. MEDICAL/SURGICAL HISTORY: None. None. RADIATION DOSE: 60.07 CTDI (mGy) COMPARISON: No prior exams available for comparison. TECHNIQUE: CT of the head without contrast. Using automated exposure control and adjustment of the mA and/or kV according to patient size, radiation dose was kept as low as reasonably achievable to ob tain optimal diagnostic quality images. DICOM format image data is available electronically for revi ew and comparison. FINDINGS: Cerebrum: The ventricles are normal for age. No evidence of midline shift, mass lesion, hemorrhage or acute infarction. No extraaxial fluid collections are seen. Posterior Fossa: The cerebellum and brainstem are intact. The 4th ventricle is midline. The cerebe llopontine angle is unremarkable. Extracranial: The visualized portion of the orbits is intact. Skull: The calvaria is intact. No evidence of skull fracture. CONCLUSION: 1. No acute intracranial abnormalities. Electronically signed by: Pablito Neff MD 03/06/2018 8:06 PM EDT
[2018-03-06] MEDS: SODIUM BICARBONATE 8.4% INJ 150 MEQ in DEXTROSE 5% IN WATE 1000ML INJ 1,000 ML IV SCH ×2 (21:00)
[2018-03-06] MEDS ORDERED: FAMOTIDINE 20 MG TAB PO SCH (21:00)
[2018-03-06] MEDS: SODIUM CHLORIDE 0.9% FLUSH 10 ML FLUSH IV FLUSH SCH (21:25)
[2018-03-06] MEDS: DOCUSATE SODIUM 50 MG/SENNA 8.6 MG TAB PO SCH (21:25)
[2018-03-06] MEDS: SODIUM POLYSTYRENE SULFONATE SUSP 15 GM/60 ML CUP PO SCH ×2 (21:25→22:00)
[2018-03-06 21:41] LABS: BICARBONATE 17.7 MEQ/L (21.0-32.0); CALCIUM 8.2 MG/DL (8.5-10.1)
[2018-03-06 21:48] LABS: CREATININE 7.2 MG/DL (0.60-1.30)
[2018-03-06 22:23] LABS: CREATININE, RANDOM URINE 225.3 MG/DL
[2018-03-07] VITALS (30 sets, daily range): BP systolic 112–157; BP diastolic 52–91; PULSE 64–100; RESP 12–36; TEMP 97–98.7; O2SAT 95–99
[2018-03-07] MEDS: AZTREONAM INJ 1,000 MG in SODIUM CHLORIDE 0.9% INJ 100 ML IV SCH ×3 (01:15→16:27)
[2018-03-07] MEDS: CHLORHEXIDINE GLUCONATE 2 % 1 PACK (2 CLOTHS) TOP SCH (01:57)
[2018-03-07] MEDS: SODIUM BICARBONATE 8.4% INJ 150 MEQ in DEXTROSE 5% IN WATE 1000ML INJ 1,000 ML IV SCH ×4 (04:07→12:00)
[2018-03-07 05:06] LABS: AUTOMATED NEUTROPHIL # 12.9 TH/MM3 (1.8-7.7); BASOPHIL % 0.1 % (0.0-2.0); EOSINOPHIL % 0.2 % (0.0-4.0); HEMATOCRIT 40.7 % (39.0-51.0); HEMOGLOBIN 13.9 GM/DL (13.0-17.0); LYMPH % 11.9 % (9.0-44.0); LYMPHOCYTE # 1.9 TH/MM3 (1.0-4.8); MEAN CELL VOLUME 84.8 FL (80.0-100.0); MEAN CORPUSCULAR HEMOGLOBIN 28.9 PG (27.0-34.0); MEAN CORPUSCULAR HGB CONC 34.1 % (32.0-36.0); MEAN PLATELET VOLUME 8.1 FL (7.0-11.0); MONO % 7.6 % (0.0-8.0); MONOCYTE # 1.2 TH/MM3 (0-0.9); NEUT % 80.2 % (16.0-70.0); PLATELET COUNT 232 TH/MM3 (150-450); RED CELL DISTRIBUTION WIDTH 12.5 % (11.6-17.2)
[2018-03-07 05:37] LABS: ALBUMIN 3.3 GM/DL (3.4-5.0); ALKALINE PHOSPHATASE 78 U/L (45-117); ALT (GPT) 26 U/L (12-78); AST (GOT) 75 U/L (15-37); BICARBONATE 24.8 MEQ/L (21.0-32.0); BLOOD UREA NITROGEN 86 MG/DL (7-18); CALCIUM 7.5 MG/DL (8.5-10.1); CHLORIDE 96 MEQ/L (98-107); GLOMERULAR FILTRATION RATE 11 ML/MIN (>89); GLUCOSE,RANDOM 113 MG/DL (74-106); MAGNESIUM 2.7 MG/DL (1.5-2.5); PHOSPHORUS 7.5 MG/DL (2.5-4.9); SODIUM (NA) 135 MEQ/L (136-145); TOTAL BILIRUBIN ADULT 1.1 MG/DL (0.2-1.0); TOTAL PROTEIN 6.4 GM/DL (6.4-8.2)
[2018-03-07] MEDS ORDERED: DEXTROSE 50% IN WATER 50 ML VIAL(D50) IV PUSH PRN (07:00)
[2018-03-07] MEDS ORDERED: GLUCAGON 1 MG/ML VIAL OTHER PRN (07:00)
[2018-03-07] MEDS: INSULIN NovoLIN REGULAR SUPPLEMENTAL SCALE SQ SCH ×3 (07:00→19:00)
--- NOTE | 2018-03-07 07:36 | MH ---
cc: Elif Condon MD DATE OF ADMISSION: 03/06/2018 HISTORY OF PRESENT ILLNESS: The patient is a 22-year-old male who presents to [facility] ED with his family member for evaluation of drug abuse and alcohol intoxication. Per ED records, family member reports that the family went camping this weekend and the patient brought along drugs to their camping trip and disappeared for about 24 hours. Rescue was sent to find the patient and he was found floating in the river. He was unsure where he was and was confused and does not remember what happened to him in the past 24 hours. He does admit to using a large amount of drugs for recreational purposes. The patient states that he uses IV Dilaudid with methamphetamines. He denied any suicidal or homicidal ideation. On arrival to the ER, he was tachycardic. His laboratory data showed a significant leukocytosis with a WBC of 27.7, which is trending down to 16.0 this morning. In addition, the patient was in acute renal failure with a BUN of 84, creatinine 8.40 and rhabdomyolysis with elevated total CK is at 5251. His urine drug screen was positive for amphetamines and cannabinoids. He underwent a CT scan of the brain in the, which showed no acute intracranial abnormalities and his x-ray showed no acute findings as well. In the ED, he was treated for hyperkalemia as his potassium level was 5.1. The patient was given insulin 10 units IV push, 2 grams of calcium gluconate, and Kayexalate. He also received 3 liters of crystalloids along with vancomycin and aztreonam. When seen, he is on room air oxygen. He denies any chest pain, shortness of breath or any constitutional symptoms. Overall, he is a poor historian. PAST MEDICAL HISTORY: Denies any significant history. PAST SURGICAL HISTORY: Unremarkable. SOCIAL HISTORY: Active smoker, drinker and uses methamphetamines, cocaine, marijuana, heroin and Dilaudid. FAMILY HISTORY: Noncontributing to present illness. ALLERGIES: PIPERACILLIN AND TAZOBACTAM. REPORTED MEDICATIONS: No active prescriptions or reported medications. REVIEW OF SYSTEMS: As per HPI. The rest of the review of systems unremarkable. PHYSICAL EXAMINATION: GENERAL: A 22-year-old male lying in bed in no acute distress. VITAL SIGNS: Temperature 98.1, pulse of 80, respiratory rate of 20, blood pressure 127/75, saturation 98% on room air. HEENT: Atraumatic, normocephalic. Pupils are equal, round, reactive to light and accommodation. Extraocular muscles intact. Conjunctivae pink, nonicteric sclerae. Oral mucosa, dry mucous membranes. NECK: Supple. No JVD, adenopathy or thyromegaly. Trachea midline. CARDIOVASCULAR: Regular rate and rhythm. Normal S1, S2. No murmurs, rubs or gallops noted. PULMONARY: Bilateral equal air entry. No rales or wheezing. ABDOMEN: Soft, nontender. No distention. Positive bowel sounds. EXTREMITIES: No cyanosis, clubbing or edema. NEUROLOGIC: No focal sensory deficit. LABORATORY DATA: Sodium 135, potassium 3.8, CO2 96, BUN 86, creatinine 6.4, glucose 113. Lactic acid 1.3, calcium 7.5, phosphorus 7.5, magnesium 2.7, AST 75, ALT 26, total bilirubin 1.1. Total CK 4244 from 5261. WBC 16 from 27, hemoglobin 13.9, hematocrit 40, platelet count 232. Urine drug screen positive for amphetamines and cannabinoids. Urinalysis negative for leukocyte esterase, 3-5 WBCs. RADIOGRAPHIC STUDIES: CT brain negative for acute intracranial findings. Chest x-ray, no acute findings. IMPRESSION: 1. Altered mental status. 2. Polysubstance abuse. 3. Acute renal failure. 4. Rhabdomyolysis. 5. Leukocytosis, trending down. 6. Elevated aspartate aminotransferase. RECOMMENDATIONS: 1. Monitor neuro status closely and avoid any sedatives. We will place on thiamine, multivitamins and folic acid. A CT scan of the brain in the ED negative for acute intracranial process. His urine drug screen was positive for amphetamines and cannabinoids. 2. We will monitor heart rate and blood pressure closely and maintain MAP greater than 65 mmHg. His lactic acid level measured at 1.3. Continue with IV hydration. 3. Oxygen p.r.n. to maintain sats above 92%. 4. We will monitor renal function, I's and O's and avoid nephrotoxins. He received 3 liters of crystalloids in the ED. Continue with bicarbonate drip as ordered. The patient is on D5W with 3 amps of bicarbonate at 200 mL an hour. Monitor electrolytes closely and CKs. His potassium level was 3.8 this morning from 5.9 on arrival. 5. We will consult nephrology service and will obtain ultrasound of the abdomen. 6. Keep n.p.o. for now until mental status improves. 7. The patient was started on empiric antibiotics in the form of aztreonam. In addition, he was given aztreonam and vancomycin in the ED. Monitor for signs of infection, which include fever and. His WBC is trending down. Followup on blood cultures. Echocardiogram was ordered to rule out vegetations. Infectious disease service consulted. 8. Monitor CBC. 9. Sliding scale insulin with Accu-Chek's for glycemic control if needed. 10. Gastrointestinal prophylaxis with Pepcid 20 mg daily and DVT prophylaxis with heparin subcutaneously and SCDs. 11. Further recommendations will be based on hospital course. Addendum: 1700 CT chest showed Pneumomediastinum discussed with Dr. Nielson plan to transfer patient to [facility] for CTS evaluation. CT chest findings discussed with Dr. Nielson. Elif Condon MD AI/DL , 06:59 AM , 07:34 AM IVY
[2018-03-07] MEDS: DOCUSATE SODIUM 50 MG/SENNA 8.6 MG TAB PO SCH ×2 (09:00→20:07)
[2018-03-07] MEDS: SODIUM CHLORIDE 0.9% FLUSH 10 ML FLUSH IV FLUSH SCH ×2 (09:00→20:08)
[2018-03-07] MEDS: FAMOTIDINE 20 MG TAB PO SCH (09:59)
[2018-03-07] MEDS: MULTIVITAMIN TAB PO SCH (09:59)
[2018-03-07] MEDS: THIAMINE HCL 100 MG TAB PO SCH (09:59)
[2018-03-07] MEDS: FOLIC ACID 1 MG TAB PO SCH (09:59)
[2018-03-07] MEDS: HEPARIN SODIUM - SQ 10,000 UNITS/ML VIAL SQ SCH ×2 (10:02→20:07)
--- NOTE | 2018-03-07 10:22 | RADRPT ---
EXAM DATE: 03/07/2018 9:57 AM EDT AGE/SEX: 22 years / Male INDICATIONS: Increased lab values. CLINICAL DATA: This is the patient's initial encounter. Patient reports that signs and symptoms have been present for 1 day and indicates a pain score of 0/10. MEDICAL/SURGICAL HISTORY: Hepatitis C. Substance abuse. Ulcer. Bipolar disorder. Depression. An xiety None. COMPARISON: [facility], CT ABDOMEN & PELVIS W/O CONTRAST, 03/07/2018. . MEASUREMENTS: Liver:__ 14.8 cm. Common Bile Duct:___ 4mm. Right Kidney:___10.4 x 4.8 x 4.7 cm. Left Kidney:___11.0 x 5.2 x 5.3 cm. Spleen:___11.7 cm. Aorta: The proximal portion measures 2.2 cm maximal. FINDINGS: Liver: Normal echotexture without focal lesion or ductal dilatation. Portal Vein: Hepatopedal flow seen in portal vein. Common Duct: No intraluminal mass or stone visualized. Gallbladder: No definite stones are demonstrated. There is some sludge in the gallbladder. Gallblad julio cesar Wall: 3 mm Pancreas: Not well visualized. Right Kidney: Normal echotexture and cortical thickness. No mass or hydronephrosis. Left Kidney: Normal echotexture and cortical thickness. No mass or hydronephrosis. Ascites: None Pleural Effusion: None Spleen: No focal lesion. Aorta: Non aneurysmal. IVC: Within normal limits CONCLUSION: 1. There is some sludge in the gallbladder. 2. Pancreas was not visualized. 3. Otherwise, unremarkable ultrasound. Electronically signed by: Isiah Hester MD 03/07/2018 10:20 AM EDT
--- NOTE | 2018-03-07 11:27 | RADRPT ---
EXAM DATE: 03/07/2018 10:42 AM EDT AGE/SEX: 22 years / Male INDICATIONS: Diffuse abdominal pain. Renal failure. CLINICAL DATA: This is the patient's initial encounter. Patient reports that signs and symptoms have been present for 2 days and indicates a pain score of 7/10. MEDICAL/SURGICAL HISTORY: Hepatitis C. Ulcer. None. RADIATION DOSE: 7.90 CTDI (mGy) COMPARISON: No prior exams available for comparison. TECHNIQUE: Multiple contiguous axial images were obtained through the abdomen. Images were obtained using multiple row detector helical technique. Using automated exposure control and adjustment of the mA and/or kV according to patient size, radiation dose was kept as low as reasonably achievable to o btain optimal diagnostic quality images. DICOM format image data is available electronically for rev iew and comparison. Lack of IV contrast limits the diagnosis for certain organ pathology. FINDINGS: Lower Lungs: There appears to be evidence of a nonspecific pneumomediastinum. There also appears to b e some bullous type changes in the posterior lung field adjacent to the cardiac silhouette. No acute infiltrates are demonstrated. Liver: The liver has a homogeneous density without space-occupying lesion. There is no dilation of th e biliary tree. The gallbladder is grossly unremarkable. Spleen: Homogeneous density without enlargement. Pancreas: Unremarkable without mass or calcification. Kidneys: Normal in size and shape. No evidence of mass or hydronephrosis. No calcified renal stones. Adrenal Glands: Unremarkable. Aorta: The aorta and proximal iliac vessels are grossly unremarkable without aneurysmal dilation. Bowel/Mesentery: The bowel loops are grossly unremarkable. The cecum and sigmoid colon have a normal configuration. The appendix is unremarkable. No definite inflammatory changes. There is stool throug hout the colon. Abdominal Wall: Intact. Retroperitoneum: No evidence of adenopathy in the retrocrural, para-aortic, or deep pelvic regions. Bladder: Contours are smooth. Small droplet of air in the urinary bladder. No bladder stones. Reproductive Organs: No abnormal masses or calcifications seen. Inguinal: The inguinal region is unremarkable without evidence of adenopathy. Bony Structures: Unremarkable. CONCLUSION: 1. Nonspecific pneumomediastinum. Recommend noncontrast CT thorax for further evaluation. 2. Tiny droplet of air in urinary bladder. 3. Otherwise, unremarkable abdomen/pelvis for patient's age. Electronically signed by: Isiah Hester MD 03/07/2018 11:25 AM EDT
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
[2018-03-07] MEDS ORDERED: Vancomycin Consult Pharmacy 1 EA OTHER SCH (12:30)
[2018-03-07 13:44] LABS: AUTOMATED NEUTROPHIL # 10.5 TH/MM3 (1.8-7.7); BASOPHIL % 0.4 % (0.0-2.0); EOSINOPHIL % 0.2 % (0.0-4.0); HEMATOCRIT 38.5 % (39.0-51.0); HEMOGLOBIN 13.3 GM/DL (13.0-17.0); LYMPH % 9.1 % (9.0-44.0); LYMPHOCYTE # 1.1 TH/MM3 (1.0-4.8); MEAN CELL VOLUME 85.5 FL (80.0-100.0); MEAN CORPUSCULAR HEMOGLOBIN 29.5 PG (27.0-34.0); MEAN CORPUSCULAR HGB CONC 34.5 % (32.0-36.0); MEAN PLATELET VOLUME 8.2 FL (7.0-11.0); MONO % 5.9 % (0.0-8.0); MONOCYTE # 0.7 TH/MM3 (0-0.9); NEUT % 84.4 % (16.0-70.0); PLATELET COUNT 198 TH/MM3 (150-450); RED CELL DISTRIBUTION WIDTH 12.6 % (11.6-17.2); WHITE BLOOD COUNT 12.3 TH/MM3 (4.0-11.0)
[2018-03-07 14:07] LABS: CALCIUM 7.3 MG/DL (8.5-10.1)
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
[2018-03-07] MEDS: ONDANSETRON HCL 4 MG/2 ML VIAL IV PUSH PRN ×2 (14:19→20:21)
[2018-03-07] MEDS: oxyCODONE/ACETAMINOPHEN 5 MG/325 MG TAB PO PRN ×2 (14:20→18:57)
[2018-03-07 14:59] LABS: CALCIUM-PROTEIN CORRECTED 7.8 MG/DL (8.5-10.1); TOTAL PROTEIN 6.1 GM/DL (6.4-8.2)
[2018-03-07] MEDS ORDERED: POTASSIUM CHLOR 20 MEQ PREMIX 100 ML IV ONE (15:00)
[2018-03-07] MEDS ORDERED: LORazepam 2 MG/ML VIAL IV PUSH PRN ×4 (15:00)
[2018-03-07] MEDS ORDERED: LORazepam 2 MG TAB PO PRN (15:00)
[2018-03-07] MEDS ORDERED: FLUMAZENIL 0.5 MG/5 ML VIAL IV PUSH PRN (15:00)
[2018-03-07] MEDS ORDERED: LORazepam 1 MG TAB PO PRN (15:00)
--- NOTE | 2018-03-07 15:38 | RADRPT ---
EXAM DATE: 03/07/2018 3:17 PM EDT AGE/SEX: 22 years / Male INDICATIONS: Abnormal prior exam. CLINICAL DATA: This is the patient's subsequent encounter. Patient reports that signs and symptoms h ave been present for 2 days and indicates a pain score of 5/10. MEDICAL/SURGICAL HISTORY: Hepatitis C. Ulcer. None. RADIATION DOSE: 15.32 CTDI (mGy) COMPARISON: [facility], CHEST SINGLE AP, 03/06/2018. . TECHNIQUE: Multiple contiguous axial images were obtained through the chest without contrast. Image s were obtained in suspended respiration using multiple row detector helical technique. Using automa britni exposure control and adjustment of the mA and/or kV according to patient size, radiation dose was kept as low as reasonably achievable to obtain optimal diagnostic quality images. DICOM format imag e data is available electronically for review and comparison. FINDINGS: Lung: No focal parenchymal abnormalities. Pleura: No effusion, significant pleural thickening or pneumothorax. Mediastinum: There is moderate diffuse pneumomediastinum extending to the lower cervical soft tissue s. There is no definitive epicenter for this. Visualized portions of the esophagus appears unremarkab le by CT. Similarly, the trachea and proximal bronchi are grossly unremarkable by CT. No significant based on adenopathy. Heart and great vessels are unremarkable. Osseous Structures: No abnormal focal lytic or blastic bony lesions. Soft Tissues: Soft tissues are unremarkable. No significant axillary adenopathy. Other: Visulaized upper abdomen is unremarkable. CONCLUSION: 1. Chest CT examination confirms findings on abdominal CT exam with diffuse moderate pneumomediastin um extending to the lower cervical soft tissues. No definitive epicenter or etiology identified. In a bsence of recent trauma or intervention, differential considerations include esophageal perforation/B oerhaave, barotrauma, vigorous exercise/Valsalva maneuver, or connective tissue disorders. Pneumomedi astinum can also occur spontaneously in young adult males. Electronically signed by: Tra Kinney MD 03/07/2018 3:37 PM EDT
[2018-03-07] MEDS: SODIUM CHLOR 0.9% 1000 ML INJ 1,000 ML IV SCH ×2 (16:25→22:40)
--- NOTE | 2018-03-07 16:53 | EKG ---
Date Performed: 03/06/2018 Time Performed: 19:06:54 PTAGE: 22 years EKG: SINUS TACHYCARDIA ABNORMAL RHYTHM ECG NO PREVIOUS TRACING DOCTOR: Wilmar Almanza Interpretating Date/Time 03/07/2018 16:49:08
--- NOTE | 2018-03-07 20:20 | ECHRPT ---
Indication: EVALUATE FOR VEGETATIONS CONCLUSIONS Normal left ventricular size. Wall thickness is normal. The left ventricular systolic function is hyperdynamic with an estimated ejection fraction in the ra nge of 65- 70%. Trace mitral valve regurgitation. There is mild tricuspid valve regurgitation. The estimated pulmonary arterial pressure is 33 mmHg. BP: 127 / 75 HR: 80 Rhythm: Sinus MEASUREMENTS (Male / Female) Normal Values Technical Quality:Fair 2D ECHO LV Diastolic Diameter PLAX 4.8 cm 4.2 - 5.9 / 3.9 - 5.3 cm LV Systolic Diameter PLAX 3.3 cm IVS Diastolic Thickness 1.0 cm 0.6 - 1.0 / 0.6 - 0.9 cm LVPW Diastolic Thickness 1.0 cm 0.6 - 1.0 / 0.6 - 0.9 cm LV Relative Wall Thickness 0.4 RV Internal Dim ED PLAX 3.8 cm LVOT Diameter 2.1 cm Aortic Root Diameter 3.1 cm LA Systolic Diameter LX 3.9 cm 3.0 - 4.0 / 2.7 - 3.8 cm M-MODE AV Cusp Separation MM 2.0 cm DOPPLER AV Peak Velocity 113.0 cm/s AV Peak Gradient 5.1 mmHg AV Mean Gradient 3.0 mmHg AV Velocity Time Integral 25.8 cm LVOT Peak Velocity 94.0 cm/s LVOT Peak Gradient 3.5 mmHg LVOT Velocity Time Integral 17.5 cm AV Area Cont Eq vti 2.3 cm AV Area Cont Eq pk 2.9 cm Mitral E Point Velocity 89.8 cm/s Mitral A Point Velocity 51.3 cm/s Mitral E to A Ratio 1.8 TR Peak Velocity 242.0 cm/s TR Peak Gradient 23.4 mmHg Right Atrial Pressure 10.0 mmHg Pulmonary Artery Systolic Pressu 33.4 mmHg Right Ventricular Systolic Press 33.4 mmHg PV Peak Velocity 58.7 cm/s PV Peak Gradient 1.4 mmHg FINDINGS LEFT VENTRICLE Normal left ventricular size. Wall thickness is normal. The left ventricular systolic function is hyperdynamic with an estimated ejection fraction in the ra nge of 65- 70%. RIGHT VENTRICLE Normal right ventricular size and systolic function. LEFT ATRIUM The left atrial size is normal. RIGHT ATRIUM The right atrial size is normal. ATRIAL SEPTUM No atrial level shunt is demonstrated by color flow Doppler interrogation. AORTA The aortic root and proximal ascending aorta are normal in size on limited imaging. MITRAL VALVE Trace mitral valve regurgitation. AORTIC VALVE Trileaflet aortic valve. No aortic valve stenosis or regurgitation. TRICUSPID VALVE There is mild tricuspid valve regurgitation. The estimated pulmonary arterial pressure is 33.4 mmHg. PULMONARY VALVE Trivial pulmonary valve regurgitation. VESSELS The inferior vena cava is normal in size. PERICARDIUM No pericardial effusion. Cony Presley MD, FACC (Electronically Signed) Final Date:07 March 2018 20:18
[2018-03-08] VITALS (16 sets, daily range): BP systolic 118–140; BP diastolic 62–95; PULSE 59–82; RESP 16–22; TEMP 98.1–98.7; O2SAT 92–98
[2018-03-08] MEDS: AZTREONAM INJ 1,000 MG in SODIUM CHLORIDE 0.9% INJ 100 ML IV SCH ×3 (01:00→17:00)
[2018-03-08] MEDS: INSULIN NovoLIN REGULAR SUPPLEMENTAL SCALE SQ SCH ×4 (01:00→19:00)
[2018-03-08] MEDS: ONDANSETRON ODT 4 MG TAB PO PRN ×2 (03:37→18:05)
[2018-03-08] MEDS: oxyCODONE/ACETAMINOPHEN 5 MG/325 MG TAB PO PRN ×3 (03:53→22:56)
[2018-03-08] MEDS: CHLORHEXIDINE GLUCONATE 2 % 1 PACK (2 CLOTHS) TOP SCH (04:00)
[2018-03-08] MEDS: SODIUM CHLOR 0.9% 1000 ML INJ 1,000 ML IV SCH ×2 (05:20→12:00)
[2018-03-08 06:32] LABS: BASOPHIL % 0.2 % (0.0-2.0); EOSINOPHIL % 0.3 % (0.0-4.0); HEMATOCRIT 37.6 % (39.0-51.0); HEMOGLOBIN 12.7 GM/DL (13.0-17.0); LYMPH % 12.2 % (9.0-44.0); LYMPHOCYTE # 1.2 TH/MM3 (1.0-4.8); MEAN CELL VOLUME 83.8 FL (80.0-100.0); MEAN CORPUSCULAR HEMOGLOBIN 28.3 PG (27.0-34.0); MEAN CORPUSCULAR HGB CONC 33.8 % (32.0-36.0); MEAN PLATELET VOLUME 8.6 FL (7.0-11.0); MONO % 8.6 % (0.0-8.0); MONOCYTE # 0.9 TH/MM3 (0-0.9); NEUT % 78.7 % (16.0-70.0); PLATELET COUNT 202 TH/MM3 (150-450); RED BLOOD COUNT 4.49 MIL/MM3 (4.50-5.90); WHITE BLOOD COUNT 10.1 TH/MM3 (4.0-11.0)
[2018-03-08 06:56] LABS: ALBUMIN 2.9 GM/DL (3.4-5.0); AST (GOT) 70 U/L (15-37); BICARBONATE 27.9 MEQ/L (21.0-32.0); BLOOD UREA NITROGEN 50 MG/DL (7-18); CALCIUM 7.6 MG/DL (8.5-10.1); CHLORIDE 99 MEQ/L (98-107); CREATININE 3.34 MG/DL (0.60-1.30); GLOMERULAR FILTRATION RATE 23 ML/MIN (>89); GLUCOSE,RANDOM 105 MG/DL (74-106); SODIUM (NA) 139 MEQ/L (136-145)
[2018-03-08 07:10] LABS: ALKALINE PHOSPHATASE 71 U/L (45-117); ALT (GPT) 30 U/L (12-78); TOTAL BILIRUBIN ADULT 0.8 MG/DL (0.2-1.0)
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
[2018-03-08] MEDS: MULTIVITAMIN TAB PO SCH (09:17)
[2018-03-08] MEDS: DOCUSATE SODIUM 50 MG/SENNA 8.6 MG TAB PO SCH ×2 (09:18→21:00)
[2018-03-08] MEDS: SODIUM CHLORIDE 0.9% FLUSH 10 ML FLUSH IV FLUSH SCH ×2 (09:18→21:00)
[2018-03-08] MEDS: FOLIC ACID 1 MG TAB PO SCH (09:18)
[2018-03-08] MEDS: THIAMINE HCL 100 MG TAB PO SCH (09:18)
[2018-03-08] MEDS: FAMOTIDINE 20 MG TAB PO SCH (09:18)
[2018-03-08] MEDS: HEPARIN SODIUM - SQ 10,000 UNITS/ML VIAL SQ SCH ×2 (09:19→21:00)
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
--- NOTE | 2018-03-08 16:20 | HHI.NPPN ---
Subjective Renal Failure: Acute History of Present Illness This is a 22-year-old male with a past medical history of IV drug abuse and alcoholism, was admitted after he was found in the [facility].The patient went camping for the weekend from and he was [place] in the [place] after the rescuing, he was found after 26 hours in the [facility] and he was without any fluid for more than 24 hours and he was using drugs including IV heroin and Dilaudid. He has a urine toxicology, which was positive for amphetamine and cannabinoids. The patient was found to have very high CPK level and also very high BUN and creatinine with a potassium of 5.9. His blood pressure has been in the normal range. The patient has been given IV fluid and BUN and creatinine started improving. The patient is asking for food. He has some nausea. There is no vomiting today. He denies any previous history of renal disease. Looking back , it looks like in 2017, his creatinine was 1.0. Denies using any nonsteroidal anti-inflammatory. Additional Remarks Patient is sleeping on side. Reports some nausea. Creatinine is improving at 3.34 to from 5.0 with good urinary output. (Mary Betancur) Review of Systems General Constitutional: Fatigue (Mary Betancur) Gastrointestinal GI Remarks nausea (Mary Betancur) Objective Data Data 03/08/18 03/09/18 19:00 07:00 Intake Total 820 ml Output Total 1800 ml Balance -980 ml Intake Oral 820 ml Output Urine Total 1800 ml Vital Signs Date Time Temp Pulse Resp B/P (MAP) Pulse Ox O2 Delivery O2 Flow Rate FiO2 03/08/18 15:30 98.4 65 18 120/83 (95) 98 03/08/18 15:01 69 03/08/18 14:00 60 03/08/18 13:00 98.2 65 18 132/92 (105) 97 03/08/18 11:00 98.5 60 18 140/95 (110) 96 03/08/18 11:00 59 03/08/18 07:47 92 21 03/08/18 07:00 74 03/08/18 07:00 98.2 72 16 127/64 (85) 96 03/08/18 04:53 22 03/08/18 03:00 98.7 75 22 140/70 (93) 94 03/08/18 03:00 75 03/08/18 00:38 96 21 03/07/18 23:00 76 03/07/18 23:00 98.7 76 22 133/88 (103) 97 03/07/18 20:53 98.7 65 22 142/89 (106) 99 03/07/18 20:53 65 03/07/18 20:31 82 03/07/18 20:00 98.1 82 12 149/67 (94) 03/07/18 19:01 76 19 141/65 (90) 03/07/18 18:00 68 24 112/60 (77) 03/07/18 18:00 68 03/07/18 17:00 78 23 115/54 (74) 03/07/18 16:34 98.0 76 28 113/52 (72) 95 (Mary Betancur) -: 03/08/18 0508 03/08/18 0508 Imaging Last Impressions Chest CT 03/07/18 0000 Signed Impressions: CONCLUSION: 1. Chest CT examination confirms findings on abdominal CT exam with diffuse mo derate pneumomediastinum extending to the lower cervical soft tissues. No defin itive epicenter or etiology identified. In absence of recent trauma or interven tion, differential considerations include esophageal perforation/Boerhaave, bar otrauma, vigorous exercise/Valsalva maneuver, or connective tissue disorders. P neumomediastinum can also occur spontaneously in young adult males. Abdomen/Pelvis CT 03/07/18 0000 Signed Impressions: CONCLUSION: 1. Nonspecific pneumomediastinum. Recommend noncontrast CT thorax for further evaluation. 2. Tiny droplet of air in urinary bladder. 3. Otherwise, unremarkable abdomen/pelvis for patient's age. Abdomen Ultrasound 03/07/18 0000 Signed Impressions: CONCLUSION: 1. There is some sludge in the gallbladder. 2. Pancreas was not visualized. 3. Otherwise, unremarkable ultrasound. Head CT 03/06/18 1848 Signed Impressions: CONCLUSION: 1. No acute intracranial abnormalities. Chest X-Ray 03/06/18 1717 Signed Impressions: CONCLUSION: No acute findings. (Mary Betancur) Physical Exam General Appearance: No Acute Distress, Comfortable (Mary Betancur) Throat Throat Exam: Oral Mucosa [place] & Moist (Mray Betancur) Pulmonary Resp Exam: Breath Sounds Equal, No Distress (Mary Betancur) Cardiology CV Exam: Normal Sinus Rhythm, Good Perfusion (Mary Betancur) Gastrointestinal/Abdomen GI Exam: Soft, Non-Tender, Non-Distended (Mary Betancur) Integumentary Skin Remarks Multiple scratches over entire body (Mary Betancur) Extremeties Extremities Exam: No Edema (Mary Betancur) Neurologic Neuro Exam: Speech Clear Neuro Remarks sleeping (Mayr Betancur) Psychiatric Psych Exam: Appropriate Responses (Mary Betancur) Assessment/Plan Assessment Summary: MOHAN/Acute Renal Failure Problem List: (1) Renal failure ICD Codes: N19 - Unspecified kidney failure Status: Acute Plan: The patient has been getting the vancomycin and Azactam, seen by the infectious disease. BUN and creatinine improving, most likely has acute kidney injury, is a combination of acute tubular necrosis from rhabdomyolysis and possible dehydration. Continue the IV hydration. CPK continues to improve patient with have poor intake. Will monitor urine output and the BUN and creatinine. Avoid nephrotoxins. Continue antibiotics per ID Labs in AM (2) Rhabdomyolysis ICD Codes: M62.82 - Rhabdomyolysis Status: Acute Plan: CPK improving. (aMry Betancur) Problem List: (1) Renal failure ICD Codes: N19 - Unspecified kidney failure Status: Acute Plan: The patient has been getting the vancomycin and Azactam, seen by the infectious disease. BUN and creatinine improving, most likely has acute kidney injury, is a combination of acute tubular necrosis from rhabdomyolysis and possible dehydration. Continue the IV hydration. CPK continues to improve patient with have poor intake. Will monitor urine output and the BUN and creatinine. Avoid nephrotoxins. Continue antibiotics per ID Labs in AM. Patient seen and examined, agree with above. Has MOHAN due to Rhabdo. and ATN. Continue IVF, avoid Nephrotoxins. (2) Rhabdomyolysis ICD Codes: M62.82 - Rhabdomyolysis Status: Acute Plan: CPK improving. (Patricia Bourgeois MD) Problem Qualifiers (1) Renal failure: (2) Rhabdomyolysis: Qualified Codes: M62.82 - Rhabdomyolysis Mary Betancur Mar 08, 2018 16:19 Patricia Bourgeois MD Mar 08, 2018 21:57
[2018-03-08] MEDS ORDERED: PROMETHAZINE INJ 25 MG/ML VIAL IM ONE (21:45)
[2018-03-09] VITALS (28 sets, daily range): BP systolic 122–145; BP diastolic 63–93; PULSE 61–98; RESP 18–22; TEMP 97.8–98.8; O2SAT 94–100
[2018-03-09] MEDS: INSULIN NovoLIN REGULAR SUPPLEMENTAL SCALE SQ SCH ×2 (01:00→06:50)
[2018-03-09] MEDS: AZTREONAM INJ 1,000 MG in SODIUM CHLORIDE 0.9% INJ 100 ML IV SCH ×3 (01:00→17:05)
[2018-03-09] MEDS: SODIUM CHLOR 0.9% 1000 ML INJ 1,000 ML IV SCH ×3 (01:20→20:26)
[2018-03-09] MEDS: CHLORHEXIDINE GLUCONATE 2 % 1 PACK (2 CLOTHS) TOP SCH (04:00)
[2018-03-09 06:10] LABS: AUTOMATED NEUTROPHIL # 10.6 TH/MM3 (1.8-7.7); BASOPHIL % 0.2 % (0.0-2.0); EOSINOPHIL % 0.2 % (0.0-4.0); HEMATOCRIT 37.9 % (39.0-51.0); HEMOGLOBIN 12.6 GM/DL (13.0-17.0); LYMPH % 10.4 % (9.0-44.0); LYMPHOCYTE # 1.3 TH/MM3 (1.0-4.8); MEAN CELL VOLUME 84.1 FL (80.0-100.0); MEAN CORPUSCULAR HGB CONC 33.3 % (32.0-36.0); MEAN PLATELET VOLUME 8.1 FL (7.0-11.0); MONO % 7.1 % (0.0-8.0); MONOCYTE # 0.9 TH/MM3 (0-0.9); NEUT % 82.1 % (16.0-70.0); PLATELET COUNT 209 TH/MM3 (150-450); RED BLOOD COUNT 4.51 MIL/MM3 (4.50-5.90); RED CELL DISTRIBUTION WIDTH 12.7 % (11.6-17.2); WHITE BLOOD COUNT 12.9 TH/MM3 (4.0-11.0)
[2018-03-09 06:48] LABS: ALBUMIN 2.6 GM/DL (3.4-5.0); AST (GOT) 47 U/L (15-37); BICARBONATE 26.1 MEQ/L (21.0-32.0); BLOOD UREA NITROGEN 27 MG/DL (7-18); CALCIUM 8.2 MG/DL (8.5-10.1); CHLORIDE 105 MEQ/L (98-107); CREATININE 1.73 MG/DL (0.60-1.30); GLOMERULAR FILTRATION RATE 50 ML/MIN (>89); GLUCOSE,RANDOM 74 MG/DL (74-106); SODIUM (NA) 141 MEQ/L (136-145)
[2018-03-09 06:52] LABS: ALKALINE PHOSPHATASE 72 U/L (45-117); ALT (GPT) 29 U/L (12-78); PHOSPHORUS 1.9 MG/DL (2.5-4.9); TOTAL BILIRUBIN ADULT 0.9 MG/DL (0.2-1.0)
[2018-03-09] MEDS: HEPARIN SODIUM - SQ 10,000 UNITS/ML VIAL SQ SCH ×2 (08:18→20:22)
[2018-03-09] MEDS: FOLIC ACID 1 MG TAB PO SCH (08:18)
[2018-03-09] MEDS: MULTIVITAMIN TAB PO SCH (08:18)
[2018-03-09] MEDS: FAMOTIDINE 20 MG TAB PO SCH (08:18)
[2018-03-09] MEDS: DOCUSATE SODIUM 50 MG/SENNA 8.6 MG TAB PO SCH ×2 (08:18→20:22)
[2018-03-09] MEDS: THIAMINE HCL 100 MG TAB PO SCH (08:18)
[2018-03-09] MEDS: SODIUM CHLORIDE 0.9% FLUSH 10 ML FLUSH IV FLUSH SCH ×2 (08:19→20:23)
--- NOTE | 2018-03-09 08:44 | HHI.PR ---
Subjective Remarks Follow up renal failure, sepsis. Patient states that he has back pain. No other complaints at this time. Denies chest pain, dyspnea. Objective Vitals Vital Signs Date Time Temp Pulse Resp B/P (MAP) Pulse Ox O2 Delivery O2 Flow Rate FiO2 03/09/18 05:00 84 03/09/18 04:00 72 03/09/18 03:00 85 03/09/18 03:00 98.2 84 22 136/73 (94) 97 03/09/18 02:00 86 03/09/18 01:00 90 03/09/18 00:00 78 03/08/18 23:56 22 03/08/18 23:00 98.1 74 22 128/89 (102) 95 03/08/18 23:00 74 03/08/18 22:00 74 03/08/18 21:00 76 03/08/18 20:14 97 03/08/18 20:00 74 03/08/18 19:00 82 03/08/18 19:00 98.1 82 22 118/65 (82) 97 03/08/18 18:29 98.3 80 18 134/62 (86) 95 03/08/18 15:30 98.4 65 18 120/83 (95) 98 03/08/18 15:01 69 03/08/18 14:00 60 03/08/18 13:00 98.2 65 18 132/92 (105) 97 03/08/18 11:00 98.5 60 18 140/95 (110) 96 03/08/18 11:00 59 I/O 03/08/18 03/08/18 03/08/18 03/09/18 03/09/18 03/09/18 07:00 15:00 23:00 07:00 15:00 23:00 Intake Total 2110 ml 820 ml 720 ml 2049 ml Output Total 700 ml 1800 ml 1600 ml 700 ml Balance 1410 ml -980 ml -880 ml 1349 ml Intake Oral 720 ml 820 ml 720 ml 720 ml IV Total 1390 ml 1329 ml Output Urine Total 700 ml 1800 ml 1600 ml 700 ml # Voids 2 # Bowel Movements 0 Result Diagram: 03/09/18 0537 03/09/18 0537 Imaging Last Impressions Chest CT 03/07/18 0000 Signed Impressions: CONCLUSION: 1. Chest CT examination confirms findings on abdominal CT exam with diffuse mo derate pneumomediastinum extending to the lower cervical soft tissues. No defin itive epicenter or etiology identified. In absence of recent trauma or interven tion, differential considerations include esophageal perforation/Boerhaave, bar otrauma, vigorous exercise/Valsalva maneuver, or connective tissue disorders. P neumomediastinum can also occur spontaneously in young adult males. Abdomen/Pelvis CT 03/07/18 0000 Signed Impressions: CONCLUSION: 1. Nonspecific pneumomediastinum. Recommend noncontrast CT thorax for further evaluation. 2. Tiny droplet of air in urinary bladder. 3. Otherwise, unremarkable abdomen/pelvis for patient's age. Abdomen Ultrasound 03/07/18 0000 Signed Impressions: CONCLUSION: 1. There is some sludge in the gallbladder. 2. Pancreas was not visualized. 3. Otherwise, unremarkable ultrasound. Head CT 03/06/18 1848 Signed Impressions: CONCLUSION: 1. No acute intracranial abnormalities. Chest X-Ray 03/06/18 1717 Signed Impressions: CONCLUSION: No acute findings. Objective Remarks General: No acute distress. Skin: Multiple abrasions on upper extremities and chest. Heart: Regular rate and rhythm. No murmur. Lungs: Clear to auscultation bilaterally. No wheezes, rales, or rhonchi. Breathing is nonlabored. Abdomen: Soft, nontender, nondistended. Extremities: No lower extremity edema. Psych: Alert and oriented. Neuro: Normal speech. No focal deficits noted. Procedures None Urinary Catheter: No Vascular Central Line Catheter: No A/P Assessment and Plan 1. Encephalopathy: Secondary to polysubstance abuse. Mental status has improved. 2. Acute renal failure: Creatinine improving. Appreciate nephrology recommendations. 3. Rhabdomyolysis: CPK trending down. Continue IV fluids. 4. Sepsis: Patient presented with tachycardia, leukocytosis. Appreciate infectious disease recommendations. Continue aztreonam. Vancomycin discontinued secondary to renal failure. 5. Pneumomediastinum: Evaluated by cardiothoracic surgery. Nonoperative management at this time. 6. Elevated AST: Trending down. Monitor labs. 7. GI prophylaxis: Pepcid. 8. Hypophosphatemia: Supplement phosphorus. Recheck labs in the morning. 9. DVT prophylaxis: Heparin, SCDs. Discharge Planning Pending further clinical improvement. Elia Thompson MD Mar 09, 2018 08:44
[2018-03-09] MEDS ORDERED: POTASSIUM PHOSPHATE MONOBASIC 500 MG TAB PO ONE (08:45)
[2018-03-09] MEDS ORDERED: POTASSIUM PHOSPHATE INJ 30 MMOL in SODIUM CHLOR 0.9% 250 ML INJ 250 ML IV ONE (09:15)
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
[2018-03-09] MEDS: ONDANSETRON ODT 4 MG TAB PO PRN (11:17)
[2018-03-09] MEDS: oxyCODONE/ACETAMINOPHEN 5 MG/325 MG TAB PO PRN ×2 (17:53→22:15)
[2018-03-10] VITALS (25 sets, daily range): BP systolic 118–145; BP diastolic 80–91; PULSE 50–92; RESP 16–20; TEMP 97.5–98.7; O2SAT 96–99
[2018-03-10] MEDS: AZTREONAM INJ 1,000 MG in SODIUM CHLORIDE 0.9% INJ 100 ML IV SCH ×3 (01:15→18:22)
[2018-03-10] MEDS: CHLORHEXIDINE GLUCONATE 2 % 1 PACK (2 CLOTHS) TOP SCH (03:33)
[2018-03-10 04:41] LABS: AUTOMATED NEUTROPHIL # 3.4 TH/MM3 (1.8-7.7); BASOPHIL % 0.6 % (0.0-2.0); EOSINOPHIL # 0.2 TH/MM3 (0-0.4); EOSINOPHIL % 3.1 % (0.0-4.0); LYMPH % 34.5 % (9.0-44.0); LYMPHOCYTE # 2.2 TH/MM3 (1.0-4.8); MEAN CELL VOLUME 85.7 FL (80.0-100.0); MEAN CORPUSCULAR HEMOGLOBIN 28.5 PG (27.0-34.0); MEAN CORPUSCULAR HGB CONC 33.3 % (32.0-36.0); MEAN PLATELET VOLUME 7.7 FL (7.0-11.0); MONO % 8.9 % (0.0-8.0); MONOCYTE # 0.6 TH/MM3 (0-0.9); NEUT % 52.9 % (16.0-70.0); PLATELET COUNT 203 TH/MM3 (150-450); RED BLOOD COUNT 4.56 MIL/MM3 (4.50-5.90); RED CELL DISTRIBUTION WIDTH 13.1 % (11.6-17.2); WHITE BLOOD COUNT 6.4 TH/MM3 (4.0-11.0)
[2018-03-10 05:20] LABS: ALBUMIN 2.7 GM/DL (3.4-5.0); AST (GOT) 32 U/L (15-37); BICARBONATE 30.8 MEQ/L (21.0-32.0); BLOOD UREA NITROGEN 19 MG/DL (7-18); CALCIUM 8.2 MG/DL (8.5-10.1); CHLORIDE 107 MEQ/L (98-107); CREATININE 1.44 MG/DL (0.60-1.30); GLOMERULAR FILTRATION RATE 62 ML/MIN (>89); GLUCOSE,RANDOM 95 MG/DL (74-106); SODIUM (NA) 143 MEQ/L (136-145)
[2018-03-10 05:25] LABS: ALKALINE PHOSPHATASE 76 U/L (45-117); ALT (GPT) 32 U/L (12-78); PHOSPHORUS 2.6 MG/DL (2.5-4.9); TOTAL BILIRUBIN ADULT 0.3 MG/DL (0.2-1.0); TOTAL PROTEIN 6.1 GM/DL (6.4-8.2)
[2018-03-10] MEDS: THIAMINE HCL 100 MG TAB PO SCH (09:32)
[2018-03-10] MEDS: FOLIC ACID 1 MG TAB PO SCH (09:33)
[2018-03-10] MEDS: DOCUSATE SODIUM 50 MG/SENNA 8.6 MG TAB PO SCH ×2 (09:33→20:41)
[2018-03-10] MEDS: HEPARIN SODIUM - SQ 10,000 UNITS/ML VIAL SQ SCH ×2 (09:33→20:41)
[2018-03-10] MEDS: MULTIVITAMIN TAB PO SCH (09:33)
[2018-03-10] MEDS: FAMOTIDINE 20 MG TAB PO SCH (09:33)
[2018-03-10] MEDS: SODIUM CHLORIDE 0.9% FLUSH 10 ML FLUSH IV FLUSH SCH ×2 (09:34→20:41)
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
[2018-03-10] MEDS: oxyCODONE/ACETAMINOPHEN 5 MG/325 MG TAB PO PRN ×2 (09:47→20:41)
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
--- NOTE | 2018-03-10 10:50 | HHI.PR ---
Subjective Remarks Follow-up back pain, renal failure. The patient continues to report right- sided back pain and flank pain. He states that it has not changed at all. No chest pain or dyspnea. No nausea or vomiting. Objective Vitals Vital Signs Date Time Temp Pulse Resp B/P (MAP) Pulse Ox O2 Delivery O2 Flow Rate FiO2 03/10/18 09:48 98 21 03/10/18 07:00 98.1 77 16 145/84 (104) 98 03/10/18 06:00 61 03/10/18 05:00 72 03/10/18 04:00 97.5 68 20 118/80 (93) 98 03/10/18 04:00 70 03/10/18 03:00 66 03/10/18 02:00 70 03/10/18 01:00 54 03/10/18 00:00 72 03/09/18 23:57 98.2 61 20 128/81 (97) 94 03/09/18 23:00 74 03/09/18 23:00 20 03/09/18 22:00 78 03/09/18 21:00 78 03/09/18 20:00 74 03/09/18 19:30 98.8 98 20 145/88 (107) 100 03/09/18 19:00 74 03/09/18 18:01 80 03/09/18 17:01 85 03/09/18 16:01 87 03/09/18 15:30 98.0 73 18 122/71 (88) 95 03/09/18 15:01 74 03/09/18 14:01 78 03/09/18 13:01 82 03/09/18 12:00 74 03/09/18 11:01 97.8 72 18 133/93 (106) 99 03/09/18 11:00 91 I/O 03/09/18 03/09/18 03/09/18 03/10/18 03/10/18 03/10/18 07:00 15:00 23:00 07:00 15:00 23:00 Intake Total 2049 ml 100 ml 942 ml 680 ml Output Total 700 ml 3000 ml 2200 ml Balance 1349 ml 100 ml -2058 ml -1520 ml Intake Oral 720 ml 942 ml 680 ml IV Total 1329 ml 100 ml Output Urine Total 700 ml 3000 ml 2200 ml # Voids 5 # Bowel Movements 1 0 Result Diagram: 03/10/18 0428 03/10/18 0428 Imaging Last Impressions Chest CT 03/07/18 0000 Signed Impressions: CONCLUSION: 1. Chest CT examination confirms findings on abdominal CT exam with diffuse mo derate pneumomediastinum extending to the lower cervical soft tissues. No defin itive epicenter or etiology identified. In absence of recent trauma or interven tion, differential considerations include esophageal perforation/Boerhaave, bar otrauma, vigorous exercise/Valsalva maneuver, or connective tissue disorders. P neumomediastinum can also occur spontaneously in young adult males. Abdomen/Pelvis CT 03/07/18 0000 Signed Impressions: CONCLUSION: 1. Nonspecific pneumomediastinum. Recommend noncontrast CT thorax for further evaluation. 2. Tiny droplet of air in urinary bladder. 3. Otherwise, unremarkable abdomen/pelvis for patient's age. Abdomen Ultrasound 03/07/18 0000 Signed Impressions: CONCLUSION: 1. There is some sludge in the gallbladder. 2. Pancreas was not visualized. 3. Otherwise, unremarkable ultrasound. Head CT 03/06/18 1848 Signed Impressions: CONCLUSION: 1. No acute intracranial abnormalities. Chest X-Ray 03/06/18 1717 Signed Impressions: CONCLUSION: No acute findings. Objective Remarks General: No acute distress. Skin: Multiple abrasions on upper extremities and chest. Heart: Regular rate and rhythm. No murmur. Lungs: Clear to auscultation bilaterally. No wheezes, rales, or rhonchi. Breathing is nonlabored. Abdomen: Soft, nontender, nondistended. Back: Tenderness of the right lower back and flank. Extremities: No lower extremity edema. Psych: Alert and oriented. Neuro: Normal speech. No focal deficits noted. Procedures None Urinary Catheter: No Vascular Central Line Catheter: No A/P Assessment and Plan 1. Encephalopathy: Secondary to polysubstance abuse. Mental status has improved. 2. Acute renal failure: Creatinine improving. Appreciate nephrology recommendations. 3. Rhabdomyolysis: CPK trending down. 4. Sepsis: Patient presented with tachycardia, leukocytosis. Concern for endocarditis. Blood cultures have been negative. Appreciate infectious disease recommendations. Continue aztreonam. Vancomycin discontinued secondary to renal failure. 5. Pneumomediastinum: Evaluated by cardiothoracic surgery. Nonoperative management at this time. 6. Elevated AST: Trending down. Monitor labs. 7. GI prophylaxis: Pepcid. 8. Hypophosphatemia: Improved with supplementation. 9. DVT prophylaxis: Heparin, SCDs. Discharge Planning Pending further clinical improvement. Elia Thompson MD Mar 10, 2018 10:50
[2018-03-10 10:54] LABS: BACTERIA, URINE RARE /hpf; BILIRUBIN, URINE NEG (NEG); BLOOD, URINE NEG (NEG); GLUCOSE,URINE >=500 mg/dL (NEG); KETONE, URINE NEG (NEG); NITRITE,URINE NEG (NEG); URINE COLOR Straw (YELLW/STRAW); URINE LEUKOCYTE ESTERASE NEG (NEG)
--- NOTE | 2018-03-10 11:22 | RADRPT ---
EXAM DATE: 03/10/2018 11:11 AM EDT AGE/SEX: 22 years / Male INDICATIONS: Cough. CLINICAL DATA: This is the patient's initial encounter. Patient reports that signs and symptoms have been present for 3 days and indicates a pain score of 0/10. MEDICAL/SURGICAL HISTORY: Hepatitis C. Ulcers. None. COMPARISON: [facility], CHEST SINGLE AP, 03/06/2018. . FINDINGS: A single AP view of the chest demonstrates the lungs to be symmetrically aerated without evidence of mass, infiltrate or effusion. The cardiomediastinal contours are unremarkable. Osseous structures a re intact. CONCLUSION: No acute cardiopulmonary process. Electronically signed by: Edi Hawkins MD 03/10/2018 11:20 AM EDT
[2018-03-11] VITALS (28 sets, daily range): BP systolic 122–154; BP diastolic 69–89; PULSE 50–85; RESP 15–20; TEMP 98–98.5; O2SAT 96–98
[2018-03-11] MEDS: AZTREONAM INJ 1,000 MG in SODIUM CHLORIDE 0.9% INJ 100 ML IV SCH ×3 (00:15→16:33)
[2018-03-11] MEDS: CHLORHEXIDINE GLUCONATE 2 % 1 PACK (2 CLOTHS) TOP SCH (03:51)
[2018-03-11] MEDS: FAMOTIDINE 20 MG TAB PO SCH (08:49)
[2018-03-11] MEDS: MULTIVITAMIN TAB PO SCH (08:49)
[2018-03-11] MEDS: FOLIC ACID 1 MG TAB PO SCH (08:49)
[2018-03-11] MEDS: THIAMINE HCL 100 MG TAB PO SCH (08:49)
[2018-03-11] MEDS: DOCUSATE SODIUM 50 MG/SENNA 8.6 MG TAB PO SCH ×2 (08:50→20:01)
[2018-03-11] MEDS: HEPARIN SODIUM - SQ 10,000 UNITS/ML VIAL SQ SCH ×2 (08:51→20:01)
[2018-03-11] MEDS: SODIUM CHLORIDE 0.9% FLUSH 10 ML FLUSH IV FLUSH SCH ×2 (08:51→20:01)
--- NOTE | 2018-03-11 09:56 | HHI.PR ---
Subjective Remarks Follow up renal failure, back/flank pain. Patient still reporting right back/ flank pain, but somewhat improved today. No nausea/vomiting. No chest pain. He gets short of breath due to pain when lying on his right side. States that he wants to go home. Objective Vitals Vital Signs Date Time Temp Pulse Resp B/P (MAP) Pulse Ox O2 Delivery O2 Flow Rate FiO2 03/11/18 06:00 56 03/11/18 05:00 50 03/11/18 04:00 56 03/11/18 03:00 56 03/11/18 03:00 98.2 59 20 134/88 (103) 96 03/11/18 02:00 50 03/11/18 01:00 50 03/11/18 00:00 54 03/10/18 23:00 58 03/10/18 23:00 98.4 58 20 128/81 (97) 97 03/10/18 22:00 56 03/10/18 21:27 20 03/10/18 21:00 50 03/10/18 20:00 55 03/10/18 19:00 98.4 77 20 139/90 (106) 97 03/10/18 19:00 60 03/10/18 18:00 76 03/10/18 17:00 50 03/10/18 16:00 52 03/10/18 15:00 67 03/10/18 15:00 98.7 60 18 139/91 (107) 99 03/10/18 14:00 58 03/10/18 13:00 66 03/10/18 12:00 58 03/10/18 11:00 98.6 92 18 140/89 (106) 96 03/10/18 11:00 73 03/10/18 10:00 78 I/O 03/10/18 03/10/18 03/10/18 03/11/18 03/11/18 03/11/18 07:00 15:00 23:00 07:00 15:00 23:00 Intake Total 680 ml 1100 ml 1200 ml 900 ml Output Total 2200 ml 2925 ml 2500 ml Balance -1520 ml 1100 ml -1725 ml -1600 ml Intake Oral 680 ml 1200 ml 800 ml IV Total 1100 ml 100 ml Output Urine Total 2200 ml 2925 ml 2500 ml # Bowel Movements 0 0 Result Diagram: 03/10/188 03/10/18427 Imaging Last Impressions Chest X-Ray 03/10/18 Signed Impressions: CONCLUSION: No acute cardiopulmonary process. Chest CT 03/07/18 Signed Impressions: CONCLUSION: 1. Chest CT examination confirms findings on abdominal CT exam with diffuse mo derate pneumomediastinum extending to the lower cervical soft tissues. No defin itive epicenter or etiology identified. In absence of recent trauma or interven tion, differential considerations include esophageal perforation/Boerhaave, bar otrauma, vigorous exercise/Valsalva maneuver, or connective tissue disorders. P neumomediastinum can also occur spontaneously in young adult males. Abdomen/Pelvis CT 03/07/18 Signed Impressions: CONCLUSION: 1. Nonspecific pneumomediastinum. Recommend noncontrast CT thorax for further evaluation. 2. Tiny droplet of air in urinary bladder. 3. Otherwise, unremarkable abdomen/pelvis for patient's age. Abdomen Ultrasound 03/07/18 Signed Impressions: CONCLUSION: 1. There is some sludge in the gallbladder. 2. Pancreas was not visualized. 3. Otherwise, unremarkable ultrasound. Head CT 03/06/181847 Signed Impressions: CONCLUSION: 1. No acute intracranial abnormalities. Objective Remarks General: No acute distress. Heart: Regular rate and rhythm. No murmur. Lungs: Clear to auscultation bilaterally. No wheezes, rales, or rhonchi. Breathing is nonlabored. Abdomen: Soft, nontender, nondistended. Back: Tenderness of the right lower back and flank. Extremities: No lower extremity edema. Psych: Alert and oriented. Neuro: Normal speech. No focal deficits noted. Procedures None Urinary Catheter: No Vascular Central Line Catheter: No A/P Assessment and Plan 1. Encephalopathy: Secondary to polysubstance abuse. Mental status has improved. 2. Acute renal failure: Creatinine improving. Appreciate nephrology recommendations. Labs are pending today. 3. Rhabdomyolysis: CPK trending down. Monitor labs. 4. Sepsis: Patient presented with tachycardia, leukocytosis. Concern for endocarditis, but no evidence on 2D echocardiogram. Blood cultures are negative so far. Appreciate infectious disease recommendations. Continue aztreonam. Vancomycin discontinued secondary to renal failure. 5. Pneumomediastinum: Evaluated by cardiothoracic surgery. Nonoperative management at this time. Possibly secondary to barotrauma/retching. 6. Elevated AST: Trending down. Monitor labs. 7. GI prophylaxis: Pepcid. 8. Hypophosphatemia: Improved with supplementation. 9. DVT prophylaxis: Heparin, SCDs. Discharge Planning Pending further clinical improvement. Elia Thompson MD Mar 11, 2018 09:56
[2018-03-11 12:12] LABS: BICARBONATE 30.5 MEQ/L (21.0-32.0); CALCIUM 9.3 MG/DL (8.5-10.1); CREATININE 1.23 MG/DL (0.60-1.30)
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
[2018-03-11] MEDS: oxyCODONE/ACETAMINOPHEN 5 MG/325 MG TAB PO PRN (16:35)
[2018-03-12] VITALS (18 sets, daily range): BP systolic 114–155; BP diastolic 56–72; PULSE 54–88; RESP 15–16; TEMP 97.8–98.4; O2SAT 98–99
[2018-03-12] MEDS: AZTREONAM INJ 1,000 MG in SODIUM CHLORIDE 0.9% INJ 100 ML IV SCH ×2 (01:07→08:27)
[2018-03-12] MEDS: CHLORHEXIDINE GLUCONATE 2 % 1 PACK (2 CLOTHS) TOP SCH (03:28)
[2018-03-12] MEDS: FOLIC ACID 1 MG TAB PO SCH (08:27)
[2018-03-12] MEDS: DOCUSATE SODIUM 50 MG/SENNA 8.6 MG TAB PO SCH (08:27)
[2018-03-12] MEDS: MULTIVITAMIN TAB PO SCH (08:27)
[2018-03-12] MEDS: FAMOTIDINE 20 MG TAB PO SCH (08:27)
[2018-03-12] MEDS: THIAMINE HCL 100 MG TAB PO SCH (08:27)
[2018-03-12] MEDS: HEPARIN SODIUM - SQ 10,000 UNITS/ML VIAL SQ SCH (08:28)
[2018-03-12] MEDS: SODIUM CHLORIDE 0.9% FLUSH 10 ML FLUSH IV FLUSH SCH (08:28)
--- NOTE | 2018-03-12 09:45 | HHI.PR ---
Subjective Remarks Follow up renal failure, back/flank pain. Patient states that he feels much better today. Back and flank pain have improved quite a bit overnight. He wants to go home. Objective Vitals Vital Signs Date Time Temp Pulse Resp B/P (MAP) Pulse Ox O2 Delivery O2 Flow Rate FiO2 03/12/18 09:00 74 03/12/18 08:00 73 03/12/18 07:08 97.8 73 16 155/72 (99) 98 03/12/18 07:00 60 03/12/18 06:31 61 03/12/18 05:00 69 03/12/18 04:09 98.0 73 15 114/67 (83) 99 03/12/18 04:00 73 03/12/18 03:00 60 03/12/18 02:00 54 03/12/18 01:00 88 03/12/18 00:00 66 03/11/18 23:41 98.0 62 15 141/74 (96) 97 03/11/18 23:00 76 03/11/18 22:00 54 03/11/18 21:00 54 03/11/18 20:00 56 03/11/18 19:57 98.2 60 17 133/89 (104) 98 03/11/18 19:00 62 03/11/18 18:00 61 03/11/18 17:00 85 03/11/18 16:00 55 03/11/18 15:08 98.5 68 16 123/69 (87) 97 03/11/18 15:00 63 03/11/18 14:00 65 03/11/18 13:00 59 03/11/18 12:00 71 03/11/18 11:39 98 21 03/11/18 11:00 98.3 81 16 154/84 (107) 98 03/11/18 11:00 79 03/11/18 10:00 50 I/O 03/11/18 03/11/18 03/11/18 03/12/18 03/12/18 03/12/18 07:00 15:00 23:00 07:00 15:00 23:00 Intake Total 900 ml 100 ml 1300 ml 300 ml Output Total 2500 ml 1650 ml 950 ml Balance -1600 ml 100 ml -350 ml -650 ml Intake Oral 800 ml 1200 ml 200 ml IV Total 100 ml 100 ml 100 ml 100 ml Output Urine Total 2500 ml 1650 ml 950 ml # Bowel Movements 0 0 Result Diagram: 03/10/18 0428 03/11/18 1131 Imaging Last Impressions Chest X-Ray 03/10/18 0000 Signed Impressions: CONCLUSION: No acute cardiopulmonary process. Chest CT 03/07/18 0000 Signed Impressions: CONCLUSION: 1. Chest CT examination confirms findings on abdominal CT exam with diffuse mo derate pneumomediastinum extending to the lower cervical soft tissues. No defin itive epicenter or etiology identified. In absence of recent trauma or interven tion, differential considerations include esophageal perforation/Boerhaave, bar otrauma, vigorous exercise/Valsalva maneuver, or connective tissue disorders. P neumomediastinum can also occur spontaneously in young adult males. Abdomen/Pelvis CT 03/07/18 0000 Signed Impressions: CONCLUSION: 1. Nonspecific pneumomediastinum. Recommend noncontrast CT thorax for further evaluation. 2. Tiny droplet of air in urinary bladder. 3. Otherwise, unremarkable abdomen/pelvis for patient's age. Abdomen Ultrasound 03/07/18 0000 Signed Impressions: CONCLUSION: 1. There is some sludge in the gallbladder. 2. Pancreas was not visualized. 3. Otherwise, unremarkable ultrasound. Head CT 03/06/18 1848 Signed Impressions: CONCLUSION: 1. No acute intracranial abnormalities. Objective Remarks General: No acute distress. Heart: Regular rate and rhythm. No murmur. Lungs: Clear to auscultation bilaterally. No wheezes, rales, or rhonchi. Breathing is nonlabored. Abdomen: Soft, nontender, nondistended. Extremities: No lower extremity edema. Psych: Alert and oriented. Neuro: Normal speech. No focal deficits noted. Procedures None Urinary Catheter: No Vascular Central Line Catheter: No A/P Assessment and Plan 1. Encephalopathy: Secondary to polysubstance abuse. Mental status has improved. 2. Acute renal failure: Creatinine improving. Appreciate nephrology recommendations. Labs are pending today. 3. Rhabdomyolysis: CPK trending down. Monitor labs. 4. Sepsis: Patient presented with tachycardia, leukocytosis. Concern for endocarditis, but no evidence on 2D echocardiogram. Blood cultures are negative so far. Appreciate infectious disease recommendations. Continue aztreonam. Vancomycin discontinued secondary to renal failure. MRI ordered to evaluate for possible source of infection in the spine. 5. Pneumomediastinum: Evaluated by cardiothoracic surgery. Nonoperative management at this time. Possibly secondary to barotrauma/retching. 6. Elevated AST: Trending down. Monitor labs. 7. GI prophylaxis: Pepcid. 8. Hypophosphatemia: Improved with supplementation. 9. DVT prophylaxis: Heparin, SCDs. Discharge Planning Pending further clinical improvement, infectious disease clearance. Elia Thompson MD Mar 12, 2018 09:45
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
== END 2018-03-12 15:11 | disposition left against medical advice (07) | DRG 871 ==
LOC: PHED 16:20 → PHEDA 19:17 → PHICU 20:30 → HCVI 03-07 20:54 → HCPC 03-08 13:15
PROVIDERS: ADMIT Family Medicine; ATTEND Family Medicine
PROC: 0T9B70Z Drainage of Bladder with Drainage Device, Via Natural or Artificial Opening (ICD-10-PCS; principal; 2018-03-06)
DX: A41.9 Sepsis, unspecified organism (principal); N17.0 Acute kidney failure with tubular necrosis; E87.2 Acidosis; G92 Toxic encephalopathy; M62.82 Rhabdomyolysis; E83.39 Other disorders of phosphorus metabolism; E87.1 Hypo-osmolality and hyponatremia; E86.0 Dehydration; E87.5 Hyperkalemia; F19.90 Other psychoactive substance use, unspecified, uncomplicated; F17.210 Nicotine dependence, cigarettes, uncomplicated; F15.90 Other stimulant use, unspecified, uncomplicated; J98.2 Interstitial emphysema; B19.20 Unspecified viral hepatitis C without hepatic coma; F10.229 Alcohol dependence with intoxication, unspecified; M54.5 Low back pain; T50.904A Poisoning by unspecified drugs, medicaments and biological substances, undetermined, initial encounter
CPT/HCPCS: 51702; 70450; 71045; 71250; 74176; 76700; 76937; 80048; 80053; 80074; 80202; 80307; 81001; 82550; 82552; 82570; 82948; 83605; 83735; 84100; 84155; 84300; 85025; 87040; 87641; 93005; 93306; 96361; 96374; 96375; J0610; J1644; J1815; J2060; J2405; J2550; J3370; J3480; J7030; J7050; J7070

== ENCOUNTER 2018-08-08 17:48 | Inpatient (IN) ==
--- NOTE | 2018-08-08 18:28 | ED ---
HPI General Chief Complaint: Psychiatric Symptoms Stated Complaint: psych eval/[place] Time Seen by Provider: 08/08/18 18:24 Source: patient and police Mode of arrival: other (Police) Limitations: other (intoxicated) History of Present Illness HPI Narrative: Patient is a 23-year-old male presenting to the emergency department for psychiatric evaluation under Lopez act. Patient was Lopez acted because he was acting delusional and making odd gestures. Officer states that patient's family has been trying to have an ex parte initiated due to patients drug use. Patient denies any physical complaints, he denies any suicidal or homicidal ideations. Symptom onset is unknown, symptoms are exacerbated by substance abuse. MD complaint: Reports other History of same: Yes Exacerbating factors: drug use Context: Reports recent drug abuse Associated psychiatric symptoms: Reports delusions Associated symptoms: Reports denies other symptoms Treatments prior to arrival: Reports none Related Data Home Medications Medication Instructions Recorded Confirmed No Known Home Medications 08/01/18 08/08/18 Allergies Allergy/AdvReac Type Severity Reaction Status Date / Time piperacillin Allergy Intermediate HIVES Verified 08/08/18 17:52 tazobactam Allergy Intermediate HIVES Verified 08/08/18 17:52 Review of Systems ROS: all other systems reviewed are negative [facility] Medical History Medical History Medical history unknown (Acute) Patient denies medical problems (Acute) Social History Social History Substance History: Active Abuse Second Hand Smoke Exposure: Yes Smoking Status: Heavy tobacco smoker Tobacco Type: Cigarettes How Often Do You Have a Drink Containing Alcohol: Monthly or less Recent Travel in [facility] within the Last 8 Weeks: No Recent Out of Country Travel within the Last 8 Weeks: No Substance Abuse Detail Methamphetamine: Substance Use Status: Active Route Used Substance Abuse: Inhalation and Intravenously Last Used: 08/07/18 Immunization History Tetanus Immunization: Unsure Exam Narrative Exam Narrative: GENERAL: Well-developed, well-nourished, alert male. Appears under the influence. SKIN: Focused skin assessment warm/dry. HEAD: Atraumatic. Normocephalic. EYES: Pupils equal and round. No scleral icterus. No injection or drainage. ENT: No nasal bleeding or discharge. Mucous membranes pink and moist. NECK: Trachea midline. No JVD. CARDIOVASCULAR: Regular rate and rhythm. No murmur appreciated. RESPIRATORY: No accessory muscle use. Clear to auscultation. Breath sounds equal bilaterally. GASTROINTESTINAL: Abdomen soft, non-tender, nondistended. Hepatic and splenic margins not palpable. MUSCULOSKELETAL: No obvious deformities. No clubbing. No cyanosis. No edema. NEUROLOGICAL: Awake and alert. No obvious cranial nerve deficits. Motor grossly within normal limits. Normal speech. Course Initial Documented Vital Signs Temperature 98 F 08/08/18 17:52 Pulse Rate 105 H 08/08/18 17:52 Respiratory Rate 18 08/08/18 17:52 Blood Pressure 134/84 08/08/18 17:52 Pulse Oximetry 98 08/08/18 17:52 Last Documented Vital Signs Temperature 98.5 F 08/10/18 17:14 Pulse Rate 109 H 08/10/18 17:14 Respiratory Rate 18 08/10/18 17:14 Blood Pressure 123/62 08/10/18 17:14 Pulse Oximetry 96 08/10/18 17:14 Medical Decision Making ALIN Attestation ALIN supervised visit: Yes Attestation: I, Dr. Campuzano, have reviewed the advance practice practitioner' s documentation and am in agreement, met with the patient face to face, made the diagnosis, and the medical decision making was done by me. [facility] Narrative Medical decision making narrative: Patient presented under Lopez act for psychiatric evaluation. Patient was here a few days ago for similar reasons. Patient is positive for methamphetamines and marijuana. His behavior is erratic , he gets combative and argumentative. He is currently cooperative. Labs reviewed from previous admission, patient is medically cleared for psychiatric evaluation. Psych screen ordered. Medical Screen Exam Complete: Yes Emergency Medical Condition: Yes Differential Diagnosis Differential Diagnosis: Substance abuse versus mood disorder versus malingering versus other Medical Records Medical records reviewed: Yes I reviewed the patient's medical records. Lab Data Result diagrams: 08/09/18 11:56 08/09/18 11:56 Lab Results 08/09/18 08/09/18 08/09/18 Range/Units 11:56 11:56 16:04 WBC 7.3 (4.0-11.0) th/mm3 RBC 5.15 (4.50-5.90) mil/mm3 Hgb 15.2 (13.0-17.0) gm/dL Hct 44.5 (39.0-51.0) % MCV 86.5 (80.0-100.0) fL MCH 29.5 (27.0-34.0) pg MCHC 34.1 (32.0-36.0) % RDW 13.6 (11.6-17.2) % Plt Count 274 (150-450) th/mm3 MPV 7.8 (7.0-11.0) fL Neut % (Auto) 65.2 (16.0-70.0) % Lymph % (Auto) 24.6 (9.0-44.0) % Nicholas % (Auto) 6.9 (0.0-8.0) % Eos % (Auto) 2.7 (0.0-4.0) % Baso % (Auto) 0.6 (0.0-2.0) % Neut # (Auto) 4.8 (1.8-7.7) th/mm3 Lymph # (Auto) 1.8 (1.0-4.8) th/mm3 Nicholas # (Auto) 0.5 (0.0-0.9) th/mm3 Eos # (Auto) 0.2 (0.0-0.4) th/mm3 Baso # (Auto) 0.0 (0.0-0.2) th/mm3 WBC Differential . Differential Comment Auto diff final Sodium 139 (136-145) meq/L Potassium 4.0 (3.5-5.1) meq/L Chloride 103 (98-107) meq/L Carbon Dioxide 32.1 H (21.0-32.0) meq/L Anion Gap 4 L (5-15) meq/L BUN 18 (7-18) mg/dL Creatinine 0.92 (0.60-1.30) mg/dL Estimated GFR Greater than 89 (>89) mL/min Random Glucose 91 (74-106) mg/dL Calcium 8.8 (8.5-10.1) mg/dL Total Bilirubin 1.0 (0.2-1.0) mg/dL AST 39 H (15-37) U/L ALT 27 (12-78) U/L Alkaline Phosphatase 87 (45-117) U/L Total Creatine Kinase (39-308) U/L CK-MB (CK-2) (0.5-3.6) ng/mL CK-MB (CK-2) % (0.0-4.0) % Total Protein 6.9 (6.4-8.2) g/dL Albumin 3.8 (3.4-5.0) g/dL Triglycerides (42-150) mg/dL Cholesterol (120-200) mg/dL LDL Cholesterol, Calc (0-99) mg/dL HDL Cholesterol (40.0-60.0) mg/dL Cholesterol/HDL Ratio Ratio TSH (0.358-3.740) uIU/mL Urine Opiates Screen Neg (Neg) Ur Barbiturates Screen Neg (Neg) Ur Amphetamine Screen Pos H (Neg) U Benzodiazepines Scrn Neg (Neg) Urine Cocaine Screen Neg (Neg) U Cannabinoids Screen Pos H (Neg) Serum Alcohol Less than 3 (0-5) mg/dL 08/10/18 08/10/18 08/10/18 Range/Units 13:27 13:27 13:27 WBC (4.0-11.0) th/mm3 RBC (4.50-5.90) mil/mm3 Hgb (13.0-17.0) gm/dL Hct (39.0-51.0) % MCV (80.0-100.0) fL MCH (27.0-34.0) pg MCHC (32.0-36.0) % RDW (11.6-17.2) % Plt Count (150-450) th/mm3 MPV (7.0-11.0) fL Neut % (Auto) (16.0-70.0) % Lymph % (Auto) (9.0-44.0) % Nicholas % (Auto) (0.0-8.0) % Eos % (Auto) (0.0-4.0) % Baso % (Auto) (0.0-2.0) % Neut # (Auto) (1.8-7.7) th/mm3 Lymph # (Auto) (1.0-4.8) th/mm3 Nicholas # (Auto) (0.0-0.9) th/mm3 Eos # (Auto) (0.0-0.4) th/mm3 Baso # (Auto) (0.0-0.2) th/mm3 WBC Differential Differential Comment Sodium (136-145) meq/L Potassium (3.5-5.1) meq/L Chloride (98-107) meq/L Carbon Dioxide (21.0-32.0) meq/L Anion Gap (5-15) meq/L BUN (7-18) mg/dL Creatinine (0.60-1.30) mg/dL Estimated GFR (>89) mL/min Random Glucose (74-106) mg/dL Calcium (8.5-10.1) mg/dL Total Bilirubin (0.2-1.0) mg/dL AST (15-37) U/L ALT (12-78) U/L Alkaline Phosphatase (45-117) U/L Total Creatine Kinase 2481 H (39-308) U/L CK-MB (CK-2) 4.0 H (0.5-3.6) ng/mL CK-MB (CK-2) % 0.2 (0.0-4.0) % Total Protein (6.4-8.2) g/dL Albumin (3.4-5.0) g/dL Triglycerides 266 H (42-150) mg/dL Cholesterol 123 (120-200) mg/dL LDL Cholesterol, Calc 42 (0-99) mg/dL HDL Cholesterol 27.6 L (40.0-60.0) mg/dL Cholesterol/HDL Ratio 4.45 Ratio TSH 0.837 (0.358-3.740) uIU/mL Urine Opiates Screen (Neg) Ur Barbiturates Screen (Neg) Ur Amphetamine Screen (Neg) U Benzodiazepines Scrn (Neg) Urine Cocaine Screen (Neg) U Cannabinoids Screen (Neg) Serum Alcohol (0-5) mg/dL Discharge Plan Discharge Disposition Patient Disposition: 30 Still Patient Discharge Condition Condition: Stable Discharge Details Diagnosis: Medical clearance for psychiatric admission Physicians Team ED Provider: Gerardo Campuzano ED Midlevel Provider: Carmela Jimenez Primary Care Provider: Primary Care Genaro,Mary Ellen Attending Provider: Woody Capone Other Providers: Woody Capone Status ED Status: Left Department Discharge Information Discharge Date/Time: 08/09/18 16:50
[2018-08-09] MEDS ORDERED: Chlorpromazine Inj 50 MG/2 ML Ampule IM ONE ×2 (09:52→10:15)
[2018-08-09] MEDS ORDERED: Bisacodyl 10 MG Supp RECTAL PRN (09:52)
[2018-08-09] MEDS ORDERED: Haloperidol Inj 5 MG/ML Ampul IV.PUSH PRN (09:52)
[2018-08-09] MEDS ORDERED: Aluminum/Magnesium/Simethacone Susp 30 ML UDC PO PRN (09:52)
[2018-08-09] MEDS ORDERED: LORazepam 1 MG Tablet PO PRN (09:52)
[2018-08-09] MEDS ORDERED: Haloperidol 5 MG Tablet PO ONE (10:15)
[2018-08-09 12:19] LABS: Baso % (Auto) 0.6 % (0.0-2.0); Eos # (Auto) 0.2 th/mm3 (0.0-0.4); Eos % (Auto) 2.7 % (0.0-4.0); Hematocrit 44.5 % (39.0-51.0); Hemoglobin 15.2 gm/dL (13.0-17.0); Lymph # (Auto) 1.8 th/mm3 (1.0-4.8); Lymph % (Auto) 24.6 % (9.0-44.0); Mean Corpuscular HGB Conc 34.1 % (32.0-36.0); Mean Corpuscular Hemoglobin 29.5 pg (27.0-34.0); Mean Corpuscular Volume 86.5 fL (80.0-100.0); Mean Platelet Volume 7.8 fL (7.0-11.0); Mono # (Auto) 0.5 th/mm3 (0.0-0.9); Mono % (Auto) 6.9 % (0.0-8.0); Neut # (Auto) 4.8 th/mm3 (1.8-7.7); Neut % (Auto) 65.2 % (16.0-70.0); Platelet Count 274 th/mm3 (150-450); Red Blood Count 5.15 mil/mm3 (4.50-5.90); Red Cell Distribution Width 13.6 % (11.6-17.2); White Blood Count 7.3 th/mm3 (4.0-11.0)
[2018-08-09 12:27] LABS: Alanine Aminotransferase 27 U/L (12-78); Albumin 3.8 g/dL (3.4-5.0); Anion Gap 4 meq/L (5-15); Aspartate Aminotransferase 39 U/L (15-37); Blood Urea Nitrogen 18 mg/dL (7-18); Calcium 8.8 mg/dL (8.5-10.1); Carbon Dioxide 32.1 meq/L (21.0-32.0); Chloride 103 meq/L (98-107); Glomerular Filtration Rate Greater Than 89 mL/min (>89); Glucose,Random 91 mg/dL (74-106); Sodium 139 meq/L (136-145)
[2018-08-09 12:30] LABS: Alkaline Phosphatase 87 U/L (45-117); Total Protein 6.9 g/dL (6.4-8.2)
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
[2018-08-09 17:07] LABS: Benzodiazepine Urine With Conf Neg (Neg); Cocaine Urine With Conf Neg (Neg); Opiates Urine With Conf Neg (Neg)
[2018-08-09 17:32] LABS: Amphetamine Urine With Conf Pos (Neg); Cannabinoid Urine With Conf Pos (Neg)
[2018-08-09] MEDS: Senna/Docusate Sodium 8.6/50 MG Tablet PO SCH (20:46)
[2018-08-10] MEDS: Senna/Docusate Sodium 8.6/50 MG Tablet PO SCH ×3 (09:29→20:30)
[2018-08-10] MEDS: Divalproex 500 MG DR Tablet PO SCH ×2 (09:45→20:30)
--- NOTE | 2018-08-10 10:19 | MB ---
cc: Woody Capone MD DATE OF CONSULTATION: 08/10/2018 PHYSICIAN REQUESTING CONSULTATION: Yogi Bourgeois MD. REASON FOR CONSULTATION: Second opinion for involuntary psychiatric hospitalization. SUBJECTIVE: Mr. Patel is a 23-year-old male with a history of substance use issues who presents under a Lopez Act by law enforcement alleging that the patient was delusional and was trying to jump in front of oncoming traffic. The patient was evaluated in the emergency department by Dr. Bourgeois and admitted to the inpatient psychiatric unit for observation. Reviewing the electronic medical record, I note that the patient was seen in psychiatric consultation most recently on 08/03/2018 by the psychiatric nurse practitioner in the ED for a substance-induced psychosis. I see no history of any previous psychiatric hospitalizations within our system. The patient was seen and examined with nurse and counselors. Chart reviewed. Case discussed with nursing staff. On my examination today, the patient presents as somewhat distractible and disinhibited. He paces around the room during the interview. Speech is rapid but interruptible. Some loosening of associations noted. Mood is reportedly somewhat elevated. He denies any suicidal or homicidal ideation. He denies any audiovisual hallucinations. No germain delusional material. Remainder of the psychiatric ROS is negative. No acute physical complaints. PAST PSYCHIATRIC HISTORY: The patient reports a history of depression, but says that he "kind of lied" to the practitioners who made this diagnosis. He is not presently under the care of a psychiatrist. He denies history of psychiatric admissions. He denies a history of suicide attempts. He does admit that he has used substances indiscriminately and copiously "to see what the fuck would happen" and this has been interpreted as a suicidal overdose incorrectly in the past. FAMILY HISTORY: The patient reports that he "absolutely" has a family psychiatric history but is not sure of the diagnoses: CHEMICAL DEPENDENCY HISTORY: The patient reports use primarily of methamphetamine and cannabis. He is not a heavy drinker nor does he report any benzodiazepine use. Urine toxicology is positive only for amphetamines and cannabinoids. Extended urine toxicology screening is presently pending. SOCIAL HISTORY: The patient describes himself as having a "female counter part." He has no children. He has a ninth grade education. He denies any access to guns or firearms. He reports that he has armed robbery charges pending. PAST MEDICAL HISTORY: No reported medical issues. MEDICATIONS: No reported home medications. ALLERGIES: PIPERACILLIN AND TAZOBACTAM. REVIEW OF SYSTEMS: Except as noted in HPI, this is negative. PHYSICAL EXAMINATION: VITAL SIGNS: Temperature 98 degrees Fahrenheit, pulse 104, respirations 18, blood pressure 101/59, pulse oximetry 97% on room air. GENERAL: Physical examination was completed by the ED provider. On my examination today, the patient appears to be in no acute physical distress. No motor abnormalities noted. He is somewhat hyperkinetic and fidgety though. No signs of intoxication or withdrawal noted. LABORATORY DATA: Reviewed: CBC is unremarkable. CMP reveals mildly elevated AST at 39. Urine toxicology is positive for amphetamines and cannabinoids. Alcohol level undetectable. MENTAL STATUS EXAMINATION: The patient is in hospital attire. He has a teardrop and lightning bolt tattoo at his left eyebrow. He is awake and alert and oriented to person and hospital at least. Besides being somewhat hyperkinetic, no motor abnormalities noted. Speech is somewhat rapid, but interruptible. Language and fund of knowledge are average. Focus and concentration are distractible. Mood is somewhat elevated. Affect expansive. Thought process circumstantial with some loosening of associations. No germain delusions. Denies audiovisual hallucinations. Denies suicidal or homicidal ideation. Insight and judgment are poor. ASSESSMENT AND PLAN: 1. Mood disorder, F39. 2. Polysubstance abuse, F19.10. This is a 23-year-old male with psychiatric history as detailed above, who presents under a Lopez Act. I am consulted for a second opinion for involuntary psychiatric hospitalization. I am also assuming primary care of the patient's case. The patient presents as hyperkinetic with rapid speech and he is also somewhat distractible and impulsive. He denies suicidal or homicidal ideation, however, and there does not appear to be any grave self-care deficit at present. Consequently, the patient does not meet criteria for involuntary psychiatric hospitalization. He is agreeable to remaining on a voluntary basis, however. The patient will be allowed to sign voluntary. My suspicion is that the patient's presenting psychiatric symptoms, which have the form of eliseo, are related to his substance abuse, although a bipolar diathesis is possible. I have offered him symptomatic treatment with a mood stabilizing antipsychotic, but he has declined citing previous bad reaction to Seroquel. We did discuss a trial of Depakote and the patient is agreeable to this. I will initiate Depakote for mood stabilization. Atarax as needed for anxiety. Melatonin as needed for sleep. Check CK. Vitals every shift. Counselor to see. Disposition planning. ESTIMATED LENGTH OF STAY: 3-5 days. Thank you very much for this consultation. Woody Capone MD DBSanam/ts , 09:34 AM , 09:43 AM MTDD
[2018-08-10 14:12] LABS: Chol/HDL Ratio 4.45 Ratio; HDL Cholesterol 27.6 mg/dL (40.0-60.0)
[2018-08-10 14:39] LABS: CKMB Percent 0.2 % (0.0-4.0)
[2018-08-10] MEDS ORDERED: Melatonin 5 MG Tablet PO PRN (21:00)
[2018-08-11] MEDS: Divalproex 500 MG DR Tablet PO SCH ×2 (08:26→20:32)
--- NOTE | 2018-08-11 09:23 | P.TTN ---
- Patient Problems Problems: 1. Discharge planning 2. Medication compliance 3. Knowledge deficit 4. Lack of coping skills - Progress Toward Goals Provider Present: Dr. Susi Capone Provider Input: 08/11/18: Prescribed Depakote to stabilize mood. To remain for further stabilization. Nurse(s) Present: Tere Nurse Input: 08/11/18: Pt is inappropriate with female staff and patients. Psychiatric Counselors Present: Jose Miguel Gibson Jr., [facility], Other (Sofia) Psychiatric Therapist Input: 08/11/18: Counselor will meet with patient to discuss safe discharge plan. Group Spec/RT/OT/VELAZQUEZ Present: Rina Gurrola, GPS, Hermann Ireland, OT Group Spec/RT/OT/VELAZQUEZ Input: 08/11/18: Pt is a new admission - Documentation Teaching Recipient: Patient
--- NOTE | 2018-08-11 10:03 | P.PNPSY ---
Subjective Remarks: Patient seen and examined with nurse. Chart reviewed. Case discussed with nursing staff. No major behavioral issues noted overnight. Case discussed in treatment team. Counselor to call family for collateral. On my examination today, the patient is considerably calmer and more organized. He is less fidgety. His speech is less rapid and more coherent. He tells me that his presentation here was "all my fault. I was on the psychosis with meth. If I am on meds, I will get my thoughts back together." No SI or HI. Denies side effects from medications. No physical complaints. Insight into the severity of substance use issues and motivation to ameliorate these issues seems limited. Patient's solution for his substance use disorder is to "just smoke marijuana." I have recommended abstinence from substances of abuse and chemical dependency evaluation and treatment on an outpatient basis. Vital Signs Temp Pulse Resp BP Pulse Ox 08/11/18 05:37 97.6 F 74 16 110/53 L 97 08/10/18 17:14 98.5 F 109 H 18 123/62 96 Intake and Output 08/10/18 08/11/18 08/11/18 22:59 06:59 14:59 Intake Total 240 / 240 Balance 240 / 240 Intake: Oral 240 / 240 Laboratory Results - last 24 hr 08/10/18 08/10/18 08/10/18 13:27 13:27 13:27 Sodium Potassium Chloride Carbon Dioxide Anion Gap BUN Creatinine Estimated GFR Random Glucose Calcium Total Creatine Kinase 2481 H CK-MB (CK-2) 4.0 H CK-MB (CK-2) % 0.2 Triglycerides 266 H Cholesterol 123 LDL Cholesterol, Calc 42 HDL Cholesterol 27.6 L Cholesterol/HDL Ratio 4.45 TSH 0.837 08/11/18 10:44 Sodium 139 Potassium 4.7 Chloride 105 Carbon Dioxide 29.1 Anion Gap 5 BUN 14 Creatinine 0.92 Estimated GFR Greater than 89 Random Glucose 93 Calcium 9.4 Total Creatine Kinase 2000 H CK-MB (CK-2) 2.0 CK-MB (CK-2) % 0.1 Triglycerides Cholesterol LDL Cholesterol, Calc HDL Cholesterol Cholesterol/HDL Ratio TSH Labs reviewed. CK elevated but trending downward. No evidence of end organ damage. Review of Systems All other systems reviewed negative except as stated in HPI Mental Status Examination Appearance: Disheveled (Mild) Consciousness: Alert Orientation: x4 Motor Activity: Other (No motor abnormalities noted. No signs of intoxication or withdrawal noted.) Speech: Unremarkable Language: Other (Much more coherent today) Fund of Knowledge: Adequate (Fair) Attention and Concentration: Easily distracted (Improving) Memory: Unremarkable Mood: Other (Stabilizing) Affect: Other (Remains a little bit expansive but decreasing) Thought Process & Associations: Other (More organized today) Thought Content: Appropriate Hallucination Type: None Delusion Type: None Suicidal Ideation: No Homicidal Ideation: No Insight: Poor Judgment: Poor Assessment and Plan - Assessment (1) Mood disorder Code(s): F39 - Unspecified mood [affective] disorder Status: Acute (2) Polysubstance abuse Code(s): F19.10 - Other psychoactive substance abuse, uncomplicated Status: Acute - Plan Plan: Patient's manic state seems to be improving with Depakote and increased time from last substance use. Continue Depakote as ordered. Trend CK and BMP through the weekend. If at any point CK fails to trend downward, consider hospitalist consult and transfer to [facility] for IVF. I have discussed concerns related to elevated CK with patient. Check VPA, ammonia levels as well as LFTs Tuesday morning. Continue to monitor on the inpatient unit. Continue other medications and care as ordered. Justification for Continued Inpatient Stay: Risk for decompensation in less restrictive environment. Discharge Planning: Pending psychiatric stabilization. Possible discharge after the weekend. Request Healthcare Surrogate/Guardian Advocate?: No
[2018-08-11 11:26] LABS: Anion Gap 5 meq/L (5-15); Blood Urea Nitrogen 14 mg/dL (7-18); Calcium 9.4 mg/dL (8.5-10.1); Carbon Dioxide 29.1 meq/L (21.0-32.0); Chloride 105 meq/L (98-107); Glomerular Filtration Rate Greater Than 89 mL/min (>89); Glucose,Random 93 mg/dL (74-106); Potassium 4.7 meq/L (3.5-5.1); Sodium 139 meq/L (136-145)
[2018-08-11 11:40] LABS: Creatine Kinase 2000 U/L (39-308)
[2018-08-11 12:00] LABS: CKMB Percent 0.1 % (0.0-4.0)
[2018-08-11] MEDS: Senna/Docusate Sodium 8.6/50 MG Tablet PO SCH ×2 (12:49→20:32)
[2018-08-11 12:59] LABS: Hemoglobin A1c 5.2 % (4.3-6.0)
[2018-08-12] MEDS: Divalproex 500 MG DR Tablet PO SCH ×2 (08:11→20:16)
[2018-08-12] MEDS: Senna/Docusate Sodium 8.6/50 MG Tablet PO SCH ×2 (08:11→20:16)
[2018-08-12 09:15] LABS: Anion Gap 9 meq/L (5-15); Blood Urea Nitrogen 12 mg/dL (7-18); Calcium 8.6 mg/dL (8.5-10.1); Carbon Dioxide 26.9 meq/L (21.0-32.0); Chloride 106 meq/L (98-107); Glomerular Filtration Rate Greater Than 89 mL/min (>89); Glucose,Random 83 mg/dL (74-106); Sodium 142 meq/L (136-145)
[2018-08-12 09:38] LABS: Creatine Kinase 1177 U/L (39-308)
[2018-08-12 09:55] LABS: CKMB Percent 0.2 % (0.0-4.0); Creatine Kinase MB 2.2 ng/mL (0.5-3.6)
--- NOTE | 2018-08-12 13:49 | P.PNPSY ---
Subjective Remarks: Reviewed electronic medical records and discussed case with staff. Follow-up was conducted in the day room with CANDACE Velazquez present. His nurse reports that he seems to have forgotten most of the incident which resulted in the ETO yesterday. shift foreman reported that he slept through the night. Patient has been compliant with his medication. Upon examination today he is perseverative on ADHD medication. Specifically requesting stimulants. He shows little to no insight reporting that he was "trying to sure you guys I can jump in and out of psychosis". States that his mood "varies I am very unstable when it comes to my moods". He minimizes the effect of his drug use on his mental health and in fact believes that he is self treating. Mental Status Examination Appearance: Disheveled (Mild) Consciousness: Alert Orientation: x4 Motor Activity: Other (No motor abnormalities noted. No signs of intoxication or withdrawal noted.) Speech: Unremarkable Language: Other (Much more coherent today) Fund of Knowledge: Adequate (Fair) Attention and Concentration: Easily distracted (Improving) Memory: Unremarkable Mood: Other (Stabilizing) Affect: Other (Remains a little bit expansive but decreasing) Thought Process & Associations: Other (More organized today) Thought Content: Appropriate Hallucination Type: None Delusion Type: None Suicidal Ideation: No Suicidal Plan: No Suicidal Intention: No Homicidal Ideation: No Homicidal Plan: No Homicidal Intention: No Insight: Poor Judgment: Poor Assessment and Plan - Assessment (1) Mood disorder Code(s): F39 - Unspecified mood [affective] disorder Status: Acute - Plan Plan: Patient will be reevaluated by the attending psychiatrist. Continue with current treatment plan. Justification for Continued Inpatient Stay: Moving this patient to a less restrictive environment would likely result in decompensation. Request Healthcare Surrogate/Guardian Advocate?: No
[2018-08-13] MEDS: Senna/Docusate Sodium 8.6/50 MG Tablet PO SCH ×2 (08:28→20:15)
[2018-08-13] MEDS: Divalproex 500 MG DR Tablet PO SCH ×2 (08:28→20:13)
[2018-08-13 09:06] LABS: Calcium 9.1 mg/dL (8.5-10.1); Potassium 4.4 meq/L (3.5-5.1)
[2018-08-13 09:32] LABS: CKMB Percent 0.3 % (0.0-4.0); Creatine Kinase MB 1.8 ng/mL (0.5-3.6)
--- NOTE | 2018-08-13 09:38 | P.PNPSY ---
Subjective Remarks: Reviewed electronic medical records and discussed case with staff. Follow-up was conducted in the dayroom. Patient states that he self medicates with amphetamine because he mind is racing. Endorses OCD and ADHD as a child. States that he was introduced to illicit drugs as a child and has a history of K2, bath salts, THC and amphetamines. Nursing staff report no new behavioral concerns. Patient states that he has a family but they cannot deal with him. He feels that the Depakote is working. Sleeping better. Denies SI/HI. Review of Systems All other systems reviewed negative except as stated in HPI Mental Status Examination Appearance: Disheveled (Mild) Consciousness: Alert Orientation: x4 Motor Activity: Other (No motor abnormalities noted. No signs of intoxication or withdrawal noted.) Speech: Unremarkable Language: Other (Much more coherent today) Fund of Knowledge: Adequate (Fair) Attention and Concentration: Easily distracted (Improving) Memory: Unremarkable Mood: Other (Stabilizing) Affect: Other (Remains a little bit expansive but decreasing) Thought Process & Associations: Other (More organized today) Thought Content: Appropriate Hallucination Type: None Delusion Type: None Suicidal Ideation: No Suicidal Plan: No Suicidal Intention: No Homicidal Ideation: No Homicidal Plan: No Homicidal Intention: No Insight: Poor Judgment: Poor Assessment and Plan - Assessment (1) Mood disorder Code(s): F39 - Unspecified mood [affective] disorder Status: Acute - Plan Plan: Patient will be reevaluated by the attending psychiatrist. Continue with current treatment plan. Justification for Continued Inpatient Stay: Moving patient to a less restrictive environment may result in his decompensation. Request Healthcare Surrogate/Guardian Advocate?: No
[2018-08-13 17:37] VITALS: RESP 16; O2SAT 99
[2018-08-14 06:13] VITALS: BP 113/71; PULSE 87; TEMP 98.1
[2018-08-14] MEDS: Senna/Docusate Sodium 8.6/50 MG Tablet PO SCH (08:38)
[2018-08-14] MEDS: Divalproex 500 MG DR Tablet PO SCH (08:38)
[2018-08-14 10:04] LABS: Albumin 3.8 g/dL (3.4-5.0); Anion Gap 4 meq/L (5-15); Aspartate Aminotransferase 23 U/L (15-37); Blood Urea Nitrogen 8 mg/dL (7-18); Carbon Dioxide 32.3 meq/L (21.0-32.0); Chloride 104 meq/L (98-107); Glomerular Filtration Rate Greater Than 89 mL/min (>89); Glucose,Random 96 mg/dL (74-106); Potassium 4.4 meq/L (3.5-5.1); Sodium 140 meq/L (136-145)
[2018-08-14 10:05] LABS: Alanine Aminotransferase 26 U/L (12-78)
[2018-08-14 10:07] LABS: Alkaline Phosphatase 91 U/L (45-117); Total Protein 7.4 g/dL (6.4-8.2); Valproic Acid 49 mcg/mL (50-100)
--- NOTE | 2018-08-14 10:37 | P.DSPSY ---
Psychiatry Discharge Summary Inpatient Psychiatric care?: Yes Advance Directives: No Mental Health Advance Directive: No Health Care Proxy: No - Admission Admission Date: August 09, 2018 09:54 - Admission Diagnosis (1) Unspecified psychosis Code(s): F29 - Unspecified psychosis not due to a substance or known physiological condition Brief History: The patient is a 23-year-old man, domiciled in [place] with his baby mother, father of 2 kids, employed in construction, with a psychiatric history of self-reported bipolar disorder, ADHD, amphetamines and cannabis use disorder, substance-induced psychosis, previous psychiatric admissions, he denies previous suicide attempts, he is noted psychotropics at the moment, he was seen by our department about a week ago due to substance intoxication and substance-induced psychosis, he was clear, he has medical history of hepatitis C , who presents to the emergency department for psychiatric evaluation under Lopez act. Patient was Lopez acted because he was acting delusional and making odd gestures and involuntary movements. Officer states that patient's family has been trying to have an ex parte initiated due to patients drug use. Chart was reviewed. On my psychiatric evaluation today find a patient that is extremely agitated, disorganized, who has been running naked in J pod, instigating other patient has been restrained in four-point and medicated with Thorazine 100 mg IM. As per nurses, the patient has been extremely hyperactive , constantly spinning in circles, coursing and voicing profanities, unable to respond to verbal de-escalation techniques. When the patient is restrained in four-point I trying to run an evaluation, but he has a very significant loosening of associations, tangentiality, inability to focus and provide meaningful information for the psychiatric assessment. PPHx: self-reported bipolar disorder, ADHD, amphetamines and cannabis use disorder, substance-induced psychosis, previous psychiatric admissions, he denies previous suicide attempts, he is noted psychotropics at the moment, he was seen by our department about a week ago due to substance intoxication and substance-induced psychosis, he was cleared. PMHx: he has medical history of hepatitis C substances Hx: Patient reports the use of methamphetamines and cannabis Family Hx: His mother has bipolar disorder Social Hx: Patient was born and raised in [place], he lives in [place] with baby mother, his father of 2 kids, one is for another 12, employed in construction, highest level of education is a GED Tobacco Use In Past 30 Days: Yes How Often Do You Have a Drink Containing Alcohol: Monthly or less Hospital Course: Patient was admitted to a locked, inpatient psychiatric unit. Appropriate precautions were in place throughout patient's hospital stay. Patient was seen and examined on the unit by psychiatry and also visited by counselor. Psychotropic medications were adjusted. Patient tolerated medications well without side effects. Patient had improvement in presenting psychiatric symptomatology during the course of his hospital stay. There was no evidence of any suicidality or homicidality on the inpatient unit. On the day of discharge: Patient seen and examined with nurse. Chart reviewed. Depakote level is mildly subtherapeutic, and so I will titrate patient's Depakote on discharge. Case discussed with nursing staff. No behavioral issues noted overnight. Case discussed with counselor. Counselor to recommend [facility] act to manage patient's substance use issues. On my examination today, the patient is requesting discharge from the inpatient psychiatric unit today. He denies any suicidal or homicidal ideation, intent or plan. He seems much calmer and his mood is much more stable versus admission. I can elicit no depressive or hypomanic/manic symptoms. He denies any audiovisual hallucinations. I can elicit no delusional material. He says that he has committed to stay clean for 1 week at least and would like to follow -up with 1 of the nurse practitioners from [facility]. I have recommended chemical dependency evaluation and treatment on an outpatient basis. He denies side effects from medications. We have discussed need for follow-up Depakote level. Patient would like to take some Atarax as needed to go home with but would like a smaller dose as he finds the current dose a little sedating, and I have reduced the dose to 25 mg on discharge. No physical complaints. Weighing the acute, chronic, and protective factors and based on the available evidence, I reception centre manager that the patient does not meet criteria for involuntary psychiatric hospitalization at this time. There is no evidence of imminent risk of harm to self or others at this point, nor is there evidence of self- care deficit to substantiate involuntary psychiatric hospitalization. The patient is requesting discharge from the inpatient psychiatric unit today, and I have no basis to retain him over his objection. Patient will be discharged today with psychiatric follow-up as arranged by counselor. Patient is also to follow-up with primary care. I have counseled the patient regarding warning signs for need to return to the psychiatric emergency room as part of a general safety plan. - Discharge Discharge Date: 08/14/18 - Discharge Diagnosis (1) Mood disorder Diagnosis: Principal (stabilized) Code(s): F39 - Unspecified mood [affective] disorder Status: Acute (2) Polysubstance abuse Diagnosis: Secondary (counseled to quit) Code(s): F19.10 - Other psychoactive substance abuse, uncomplicated Status: Acute Discharge Disposition: Home - Discharge Instructions Discharge Diet: Regular Diet Activities You Can Perform: Weight Bearing As Tolerat - Discharge Time <= 30 minutes Mental Status Examination Appearance: Appropriate Consciousness: Alert Orientation: x4 Motor Activity: Normal gait, Other (No motor abnormalities noted. No signs of withdrawal noted.) Speech: Unremarkable Language: Adequate Fund of Knowledge: Adequate (Fair) Attention and Concentration: Adequate Memory: Unremarkable Mood: Appropriate Affect: Appropriate Thought Process & Associations: Intact Thought Content: Appropriate Hallucination Type: None Delusion Type: None Suicidal Ideation: No Suicidal Plan: No Suicidal Intention: No Homicidal Ideation: No Homicidal Plan: No Homicidal Intention: No Insight: Poor Judgment: Poor Mental Status Exam Remarks: Insight and judgment are chronically poor. Discharge/Advance Care Plan - Results Vital Signs: Last Vital Signs Temp 98.1 F 08/14/18 06:00 Pulse 87 08/14/18 06:00 Resp 16 08/14/18 06:00 BP 113/71 08/14/18 06:00 Pulse Ox 99 08/13/18 17:37 Lab Results: Abnormal Lab Results 08/14/18 08/14/18 09:14 09:14 Sodium 140 Potassium 4.4 Chloride 104 Carbon Dioxide 32.3 H Anion Gap 4 L BUN 8 Creatinine 0.97 Estimated GFR Greater than 89 Random Glucose 96 Calcium 9.0 Total Bilirubin 0.5 Direct Bilirubin 0.1 Indirect Bilirubin 0.4 AST 23 ALT 26 Alkaline Phosphatase 91 Ammonia 23 Total Protein 7.4 Albumin 3.8 Valproic Acid 49 L Laboratory Results Hemoglobin A1c 5.2 % (4.3-6.0) 08/10/18 13:27 Triglycerides 266 mg/dL (42-150) H 08/10/18 13:27 Cholesterol 123 mg/dL (120-200) 08/10/18 13:27 LDL Cholesterol, Calc 42 mg/dL (0-99) 08/10/18 13:27 HDL Cholesterol 27.6 mg/dL (40.0-60.0) L 08/10/18 13:27 TSH 0.837 uIU/mL (0.358-3.740) 08/10/18 13:27 Valproic Acid 49 mcg/mL (50-100) L 08/14/18 09:14 Summary of Procedures: None done. Imaging: None done. Pending Results: Lab Results (Extended urine toxicology pending) - Medications Number of antipsychotic medications at discharge: 0 - Discharge Care Plan Goals to Promote Your Health: * To prevent worsening of your condition and complications * To maintain your health at the optimal level Directions to Meet Your Goals: Take your medications as prescribed Follow your dietary instruction Follow activity as directed Keep your appointments as scheduled Take your immunizations and boosters as scheduled If your symptoms worsen call your PCP, if no PCP go to Urgent Care Center or Emergency Room For 11/04 questions related to your inpatient stay or results of tests pending at discharge, please contact Dr. Woody Capone MD at Smoking is Dangerous to Your Health. Avoid second hand smoking
== END 2018-08-14 13:25 | disposition home or self-care (01) ==
LOC: NEDAMB 17:48 → NEDA 08-09 09:54 → H270 08-09 16:42
PROVIDERS: ADMIT Psychiatry & Neurology Psychiatry; ATTEND Psychiatry & Neurology Psychiatry